=== PATIENT | female | born 1990 | race Two or more races ===

== ENCOUNTER 2021-08-01 15:46 | Emergency (ER) | payer OTHER, SELFPAY ==
[2021-08-01 15:58] VITALS: BP 139/100; PULSE 102; RESP 18; TEMP 36.9; O2SAT 98; BMI 23.8
[2021-08-01 16:07] LABS: MANUAL DIFF FLAG NO
[2021-08-01 16:12] LABS: Basophils Percent Auto 0.5 % (0-2); Eosinophils Absolute Auto 0.1 X10*3/uL (0.0-0.4); Eosinophils Percent Auto 0.8 % (0-4); Hematocrit 34.1 % (37.0-47.0); Hemoglobin 10.9 g/dl (12.0-16.0); Imm Gran Abs Auto 0.02 X10*3/uL (0.00-0.03); Imm Gran Pct Auto 0.3 % (0.0-0.4); Lymphocytes Absolute Auto 1.8 X10*3/uL (1.2-4.9); Lymphocytes Percent Auto 24.5 % (20-40); Mean Corpuscular Hemoglobin 26.7 pg (27.0-33.0); Mean Corpuscular Volume 83.4 fL (80.0-98.0); Mean Platelet Volume 9.7 fL (9.4-12.3); Monocytes Absolute Auto 0.6 X10*3/uL (0.1-1.2); Monocytes Percent Auto 7.5 % (2-11); Neutrophils Absolute Auto 4.9 x10*3/uL (2.0-8.3); Neutrophils Percent Auto 66.4 % (45-73); Platelet Count 379 X10*3/uL (160-400); Red Blood Count 4.09 X10*6/uL (4.20-5.50); Red Cell Distribution Width 16.2 % (11.0-16.0); White Blood Count 7.3 X10*3/uL (4.8-10.8)
[2021-08-01 16:22] LABS: Anion Gap 11 (12-20); Blood Urea Nitrogen 12 mg/dL (9-16); Carbon Dioxide 22 mmol/L (22-29); Chloride 108 mmol/L (96-108); Creatinine Clr Calc Pharmacy 96.1; Estimated Glomerular Filt Rate > 60; Glucose Random 101 mg/dL (60-115); Potassium 3.9 mmol/L (3.3-5.1); Sodium 137 mmol/L (135-145)
[2021-08-01 17:36] LABS: Appearance Urine TURBID; Glucose Urine UA NEG (NEG); Specific Gravity - Urine 1.025 (1.005-1.025); UACC Culture Trigger YES; Urine Blood 3+ (NEG)
[2021-08-01 17:41] LABS: Color Urine RED; Leukocyte Esterase Urine TRACE (NEG); Nitrite Urine POS (NEG)
[2021-08-01 17:42] LABS: Urine Ketones 5 MG/DL (NEG); Urine Protein 2+ MG/DL (NEG-TRACE)
[2021-08-01 17:51] LABS: RBC Urine TNTC /HPF (0); Squamous Epithelial Cell Urine 1+ /LPF; WBC Urine 0 /HPF (0-4)
== END 2021-08-01 22:17 | disposition left against medical advice (07) ==
PROVIDERS: Emergency Provider Emergency Medicine
DX: N93.9 Abnormal uterine and vaginal bleeding, unspecified (principal)
CPT/HCPCS: 36415; 80048; 81001; 85025; 87086; 87147; 99283

== ENCOUNTER 2021-08-02 08:13 | Emergency (ER) | payer OTHER, SELFPAY ==
[2021-08-02 08:23] VITALS: BP 143/91; PULSE 101; RESP 18; TEMP 36.2; O2SAT 99; BMI 23.9
[2021-08-02 08:42] LABS: MANUAL DIFF FLAG NO
[2021-08-02 08:47] LABS: Basophils Percent Auto 0.6 % (0-2); Eosinophils Absolute Auto 0.1 X10*3/uL (0.0-0.4); Eosinophils Percent Auto 1.7 % (0-4); Hematocrit 35.9 % (37.0-47.0); Hemoglobin 11.2 g/dl (12.0-16.0); Imm Gran Abs Auto 0.01 X10*3/uL (0.00-0.03); Imm Gran Pct Auto 0.2 % (0.0-0.4); Lymphocytes Absolute Auto 1.4 X10*3/uL (1.2-4.9); Lymphocytes Percent Auto 21.5 % (20-40); Mean Corpuscular HGB Conc 31.2 g/dl (31.0-35.0); Mean Corpuscular Hemoglobin 26.4 pg (27.0-33.0); Mean Corpuscular Volume 84.7 fL (80.0-98.0); Monocytes Absolute Auto 0.6 X10*3/uL (0.1-1.2); Monocytes Percent Auto 8.8 % (2-11); Neutrophils Absolute Auto 4.4 x10*3/uL (2.0-8.3); Neutrophils Percent Auto 67.2 % (45-73); Platelet Count 443 X10*3/uL (160-400); Red Blood Count 4.24 X10*6/uL (4.20-5.50); Red Cell Distribution Width 16.5 % (11.0-16.0); UPreg QC Valid YES; White Blood Count 6.6 X10*3/uL (4.8-10.8)
[2021-08-02 08:48] LABS: Urine Pregnancy NEGATIVE (NEGATIVE)
[2021-08-02 08:54] LABS: Appearance Urine CLOUDY; Glucose Urine UA NEG (NEG); Leukocyte Esterase Urine TRACE (NEG); Nitrite Urine NEG (NEG); Specific Gravity - Urine 1.025 (1.005-1.025); UACC Culture Trigger NO; Urine Blood 3+ (NEG); Urine Ketones NEG (NEG); Urine Protein 2+ MG/DL (NEG-TRACE)
[2021-08-02 08:55] LABS: Color Urine RED
[2021-08-02 08:58] LABS: RBC Urine TNTC /HPF (0); Squamous Epithelial Cell Urine TRACE /LPF; WBC Urine 0-2 /HPF (0-4)
[2021-08-02 09:09] LABS: Alanine Aminotransferase 11 U/L (0-31); Albumin Level 4.1 g/dL (3.5-5.0); Alkaline Phosphatase 52 U/L (39-117); Anion Gap 12 (12-20); Aspartate Amino Transferase 13 U/L (5-31); Bilirubin Total 0.2 mg/dL (0.0-1.0); Blood Urea Nitrogen 13 mg/dL (9-16); Carbon Dioxide 22 mmol/L (22-29); Chloride 107 mmol/L (96-108); Creatinine Clr Calc Pharmacy 92.3; Estimated Glomerular Filt Rate > 60; Glucose Random 95 mg/dL (60-115); Sodium 137 mmol/L (135-145); Total Protein 7.3 g/dL (6.5-8.0)
== END 2021-08-02 14:36 | disposition left against medical advice (07) ==
PROVIDERS: Emergency Provider Emergency Medicine
DX: N92.0 Excessive and frequent menstruation with regular cycle (principal)
CPT/HCPCS: 36415; 80053; 81001; 81025; 85025; 99283

== ENCOUNTER 2021-08-03 08:07 | Outpatient (REF) | payer OTHER, SELFPAY ==
[2021-08-03 13:20] LABS: CT PCR NOT DETECTED (Not Detect.); NG PCR NOT DETECTED (Not Detect.)
[2021-08-04 11:14] LABS: BV Int Neg Control Negative (Negative); BV Int Pos Control Positive (Positive)
[2021-08-09 11:51] LABS: HPV mRNA E6/E7 rflx Not Detected (Not Detected)
== END 2021-08-03 08:08 | disposition home or self-care (01) ==
LOC: HO.LAB 08:07
PROVIDERS: Visit Provider Advanced Practice Midwife
DX: Z01.411 Encounter for gynecological examination (general) (routine) with abnormal findings (principal); Z11.51 Encounter for screening for human papillomavirus (HPV); N92.0 Excessive and frequent menstruation with regular cycle; N20.2 Calculus of kidney with calculus of ureter; R68.82 Decreased libido; Z72.0 Tobacco use
CPT/HCPCS: 87480; 87491; 87510; 87591; 87624; 87660; 88142

== ENCOUNTER 2021-09-06 14:36 | Outpatient (REF) | payer OTHER, SELFPAY ==
--- NOTE | ~2021-09-06 | US_ITS ---
EXAMINATION: US PELVIS CLINICAL INFORMATION: Excessive and frequent menstruation. Status post polypectomy in 2019 COMPARISON: June 17, 2019 TECHNIQUE: Ultrasound of the pelvis is performed using both transabdominal and transvaginal transducers along with Doppler. Transvaginal imaging is performed due to inadequate visualization transabdominally. FINDINGS: Uterus: The uterus is anteverted and measures 8.6 x 4.6 x 5.1 cm. The double wall endometrial thickness is 1.7 mm. No endometrial mass identified. The uterus is smooth in contour and has normal myometrial echogenicity. No visible fibroid. Adnexa: Both ovaries are visualized. There is normal color flow to the adnexa. There is no ovarian torsion. There is no pelvic ascites or fluid collection. Right ovary measures 2.7 x 2.4 x 2.2 cm. There is a simple cyst measuring 1.9 x 1.7 x 1.7 cm in size. Left ovary measures 2.1 x 1.7 x 1.9 cm. US/US pelvic and transvaginal IMPRESSION: Thickened endometrium without definitive polyp identified. 1.9 cm right ovarian cyst.
== END 2021-09-06 14:37 | disposition home or self-care (01) ==
LOC: HO.US 14:36
PROVIDERS: Visit Provider Advanced Practice Midwife
DX: N92.0 Excessive and frequent menstruation with regular cycle (principal)
CPT/HCPCS: 76830; 76856

== ENCOUNTER 2021-09-15 14:02 | Outpatient (REF) | payer OTHER, SELFPAY | END 2021-09-15 14:03 | disposition home or self-care (01) | LOC: HO.LAB 14:02 | PROVIDERS: Visit Provider Obstetrics & Gynecology | DX: N88.9 Noninflammatory disorder of cervix uteri, unspecified (principal); N93.9 Abnormal uterine and vaginal bleeding, unspecified; N83.201 Unspecified ovarian cyst, right side; R93.89 Abnormal findings on diagnostic imaging of other specified body structures | CPT/HCPCS: 57500; 88305; 99212 ==

== ENCOUNTER → 2021-09-28 13:44 | Outpatient (BNVA) | payer OTHER, SELFPAY | PROVIDERS: Visit Provider Obstetrics & Gynecology | DX: N88.9 Noninflammatory disorder of cervix uteri, unspecified (principal) | CPT/HCPCS: 99212 ==

== ENCOUNTER 2021-09-30 10:11 | Day surgery (SDC) | payer OTHER, SELFPAY ==
[2021-09-30] VITALS (11 sets, daily range): BP systolic 101–141; BP diastolic 40–104; PULSE 60–89; RESP 16–22; TEMP 36.6–36.8; O2SAT 100; BMI 23.6
--- NOTE | 2021-09-30 10:47 | MHC.SHP ---
Pre-Procedural Eval Section A Date of Service: 09/30/21 The patient is an INPATIENT: No Changes since office visit: No Cold of Flu in the past 2 weeks, No New Medical Problems, No Changes in Medication and No Patient answered all questions The History & Physical has been completed within 30 days and I have reviewed it.: Yes Section B Chief Complaint: polyp Allergies: Allergies Allergy/AdvReac Type Severity Reaction Status Date / Time No Known Allergies Allergy Verified 09/28/21 14:02 Plan Diagnosis/Plan: Unchanged I have reviewed the history and physical and performed a pertinent physical examination on my patient. No changes have occurred unless specified.
[2021-09-30 10:50] LABS: UPreg QC Valid YES; Urine Pregnancy NEGATIVE (NEGATIVE)
--- NOTE | 2021-09-30 10:51 | P.CONAN_ITS ---
HPI - Anesthesia Eval Consult details Narrative: 30 yo female patient for D&C Hysteroscopy, possible myomectomy, possible polypectomy PMFSH Active Problems Active Problems: All Active Problems (Updated 09/28/21 @ 14:18 by Madan James MD) Cervical lesion (Acute) Abnormal uterine bleeding (Acute) Anemia Family History Family history of problems with anesthesia: No Surgical History Surgical History Hx of dilation and curettage History of Problems with Anesthesia: No Social History Social History Alcohol intake: current Alcohol intake frequency: a few times a month Patient Tobacco Use Status: Current everyday Tobacco user Tobacco use type: Cigarette Cigarettes Per Day: 7 Use of substances other than those prescribed or required for medical reasons: No Are you DNR?: No Advance Directives: No Advance Directives Information Provided: Yes Recently lost weight without trying: No Nutrition Risks: No Nutritional Risk Current occupational status: employed 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 [employer] Sexual orientation: Straight/Heterosexual Gender identity: Female Meds Allergies Allergy/AdvReac Type Severity Reaction Status Date / Time No Known Allergies Allergy Verified 09/28/21 14:02 Home Medications Medication Instructions Recorded Confirmed Last Taken Type No Known Home Meds 09/15/21 09/15/21 Unknown History Exam Exam Date and Time: September 30, 2021 1051 Height,Weight and Vital Signs: Height 5 ft 1 in Weight 56.699 kg Last Vital Signs Temp 98.2 F 09/30/21 10:41 Pulse 89 09/30/21 10:41 Resp 16 09/30/21 10:41 BP 128/89 09/30/21 10:41 Pulse Ox 100 09/30/21 10:41 O2 Del Method 09/30/21 10:41 Pertinent Lab Results Pertinent Lab Results: Laboratory Tests 09/30/21 10:28 Urine Test NEGATIVE Airway Mallampati Class: II TM Dist: >3cm Neck ROM: Full Loose/Missing/Broken Teeth: No (Per patient) Heart: RRR Lungs: CTAB Assessment and Plan Assessment Anesthesia Assessment: Anesthesia Plan Discussed and Chart Reviewed Final Anesthetic Review Family History of Problems with Anesthesia: No History of Problems with Anesthesia: No NPO: Yes ASA Class: II Final Preanesthetic Review: No Changes in Pt Med Stat, Meds/Allgs Chart Reviewed, Consent Obtained/Reviewed and Anes Risks/Benef Reviewed Patient Risk: Low Procedure Risk: Low Assessment/Block/Sedation in SS: Assess/Block/Sedation-SS Anesthetic Plan Anesthetic Plan: GA Disposition: Standard PACU
[2021-09-30] MEDS: Lactated Ringers 1,000 ML 100 ML IVCONT (10:59)
--- NOTE | 2021-09-30 12:28 | PM.OP ---
Brief Operative Note Date of Service: 09/30/21 Pre-op diagnosis: Abnormal uterine bleeding, endo cervical polyp Post-op diagnosis: same (Abnormal uterine bleeding, endometrial polyp) Procedure: Hysteroscopy D&C, Polypectomy Surgeon: Madan James MD Anesthesia: GLMA Was an Bailing Machine Operator used for this Procedure?: No Estimated blood loss (mL): 0 Pathology: other (Endometrial Scrapping. Endometrial Polyp) Condition: stable Disposition: PACU
--- NOTE | 2021-09-30 12:29 | P.OP_ITS ---
Operative Note Operative Note Date of Service: 09/30/21 Narrative: Preop Diagnosis: Abnormal uterine bleeding, endocervical polyp Operation: Diagnostic Hysteroscopy, Dilataion & Curettage and polypectomy Post Op Diagnosis: Endometrial Polyp QBL: Minimal Anesthesia: GLMA Surgeon: Madan James MD Supervisor Treating And Pumping: None Complication: None Pathology: Endometrial Scrapings, Endometrial polyp Procedure: The patient was put in the dorsal lithotomy position, scrubbed, and draped in the usual manner. A sterile speculum was inserted in the patient's vagina. The anterior lip of the cervix was grasped with a single tooth tenaculum. The cervix was dilated up to 5 mm, then the scope was inserted in the patient's uterus. Inspection revealed endometrial polyp. The Myosure Reach device was used; it was introduced through the operative channel and polypectomy done with no complications. At the end of the procedure, all instruments were taken out of the patient uterine and vaginal cavity. Endometrial scrapings was carried on with moderate amount of tissues retrieved. The single tooth tenaculum was removed and homeostasis was assured using pressure,. The patient tolerated the procedure well and was transferred to the PACU in a stable condition.
[2021-09-30] MEDS: ondansetron HCL 4 MG/2 ML VIAL IVPUSH (12:44)
[2021-09-30] MEDS: oxyCODONE HCl Immed Release 5 MG TABLET PO (12:46)
[2021-09-30] MEDS: Acetaminophen 325 MG TABLET 650 MG PO (12:46)
[2021-09-30] MEDS: fentaNYL citrate/PF 100 MCG/2 ML VIAL 25 MCG IVPUSH ×2 (12:47→13:06)
[2021-09-30] MEDS: Ketorolac Tromethamine 30 MG/ML VIAL IVPUSH (12:53)
== END 2021-09-30 14:45 | disposition home or self-care (01) ==
PROVIDERS: Visit Provider Obstetrics & Gynecology
PROC: 0UDB8ZZ Extraction of Endometrium, Via Natural or Artificial Opening Endoscopic (ICD-10-PCS; CPT 58558; principal; 2021-09-30 12:35)
DX: N84.0 Polyp of corpus uteri (principal); N93.9 Abnormal uterine and vaginal bleeding, unspecified; F17.210 Nicotine dependence, cigarettes, uncomplicated
CPT/HCPCS: 58558; 81025; 88305; J1100; J1885; J2250; J2405; J3010

== ENCOUNTER → 2021-10-13 12:41 | Outpatient (BNVA) | payer OTHER, SELFPAY | PROVIDERS: Visit Provider Obstetrics & Gynecology | DX: N88.9 Noninflammatory disorder of cervix uteri, unspecified (principal) | CPT/HCPCS: 99212 ==

== ENCOUNTER 2023-10-23 10:38 | Outpatient (REF) | payer OTHER, SELFPAY ==
--- NOTE | ~2023-10-23 | US_ITS ---
EXAMINATION: US PELVIS CLINICAL INFORMATION: Heavy bleeding with clots COMPARISON: 09/06/2021 TECHNIQUE: Ultrasound of the pelvis is performed using both transabdominal and transvaginal transducers along with Doppler. Transvaginal imaging is performed due to inadequate visualization transabdominally. FINDINGS: Uterus: The uterus is measures 7.0 x 3.7 x 4.5 cm. The endometrium is thickened and heterogeneous measuring 1 cm. Within the endometrium there is a stalk-like vessel but no definite polyp or mass is identified Left ovary measures 2.5 x 2.3 x 2.8 cm for a volume of 8.4 mL. Previous measurement was 2.1 x 1.7 x 1.9 cm for a volume of 3.5 mm. Right ovary measures 1.7 x 1.8 x 2.3 cm for a volume of 3.7 mL. Previous measurement was 2.7 x 2.4 x 2.2 cm for a volume of 7.5 cm. No free fluid. US/US pelvic and transvaginal IMPRESSION: Redemonstration thickened heterogeneous endometrium with concern for stalk like vessel but no definite identifiable mass.
[2023-10-23 10:57] LABS: Hematocrit 27.4 % (37.0-47.0); Mean Corpuscular HGB Conc 29.9 g/dl (31.0-35.0); Mean Corpuscular Hemoglobin 22.8 pg (27.0-33.0); Mean Corpuscular Volume 76.1 fL (80.0-98.0); Mean Platelet Volume 9.7 fL (9.4-12.3); Platelet Count 283 X10*3/uL (160-400); Red Cell Distribution Width 16.2 % (11.0-16.0); White Blood Count 5.8 X10*3/uL (4.8-10.8)
[2023-10-23 10:59] LABS: Hemoglobin 8.2 g/dl (12.0-16.0)
[2023-10-23 13:59] LABS: HCG Quantitative < 2 mIU/mL; TSH reflex Free T4 0.69 uIU/mL (0.32-4.0)
[2023-10-23 17:35] LABS: CT PCR NOT DETECTED (Not Detect.); NG PCR NOT DETECTED (Not Detect.)
[2023-10-24 07:15] LABS: Prolactin 6.5 ng/mL
== END 2023-10-23 10:39 | disposition home or self-care (01) ==
LOC: HO.LAB 10:38
PROVIDERS: Visit Provider Obstetrics & Gynecology
DX: N88.9 Noninflammatory disorder of cervix uteri, unspecified (principal); N93.9 Abnormal uterine and vaginal bleeding, unspecified
CPT/HCPCS: 36415; 76830; 76856; 81025; 84146; 84443; 84702; 85027; 87491; 87591; 99212

== ENCOUNTER 2023-10-23 10:51 | Outpatient (AMB) | payer OTHER, SELFPAY ==
--- NOTE | 2023-10-23 10:52 | MHC.OFFVIS ---
Vital Signs 10/23/23 10:58 Height 5 ft 1 in Weight 124 lb BMI 23.4 BP 118/64 Intake Visit Reasons: vaginal bleeding Manufacturing Advisor Required: No Information Interpreted: non-clinical & clinical Lead Neurodiagnostic Technologist: Lead Neurodiagnostic Technologist Present (Loan Rangel TERRI) Accompanied by: Self / Same As Patient Allergies No Known Allergies Allergy (Verified 10/23/23 10:59) Is last menstrual period known: Yes Last menstrual period: 10/04/23 Post menopausal: No Patient : No Do you need a note to return to daycare/school/sports/work: Yes (for surgery on sunday) HPI Comments Details: Presenting with 2 week history of heavy vaginal bleeding associated with pelvic cramping and passage of blood clots, feeling weak tiredness Last co testing was in 07/31 was negative. 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 [employer] Sexual orientation: Straight/Heterosexual Gender identity: Female Female Reproductive History Menstrual Age of Menarche: 8 Date of last menstrual period: 10/04/23 Total pregnancies: 2 Full term: 2 Review of Systems Const All systems reviewed & are unremarkable except as noted in HPI and below Card Reports as per HPI and Reports no additional complaints Resp Reports as per HPI and Reports no additional complaints GI Reports as per HPI and Reports no additional complaints Reports as per HPI Physical Exam Vital Signs: Last Vital Signs BP 118/64 10/23/23 10:58 BMI result Body Mass Index 23.4 Const General: cooperative, healthy appearing and comfortable Resp Effort & Inspection: normal respiratory effort Auscultation: clear to auscultation bilaterally Percussion: percussion normal Cardio Palpation: normal PMI Rate: regular rate Rhythm: regular rhythm Heart sounds: no murmurs and no rubs Peripheral pulses: Peripheral pulses 2+ throughout GI Inspection: Yes normal to inspection Palpation (GI): Soft to palpation, nontender, no guarding, not rigid and No hepatosplenomegaly present Percussion: Yes normal to percussion Auscultation: normal bowel sounds Rectal Exam - Female: deferred General: Yes no CVA tenderness External Female Exam: normal external appearance and normal appearance of the urethra Speculum Exam - Vagina: normal appearance of the vagina, normal palpation, no lesions and no masses Speculum Exam - Cervix: normal appearance of the cervix, normal palpation, no lesions, no masses, nontender and Other cervical findings present (2 cm endocervical polyp bleeding) Bimanual exam- vagina & uterus: normal bimanual exam, normal palpation, uterine size normal, normal palpation, uterine shape normal, No Cervical tenderness present and non-tender Bimanual Exam- Adnexa, other: normal adnexae Back/Spine/Pelvis Back: no CVA tenderness Results AMB Test Urine AMB Test Urine Negative Last Edit by Loan Rangel CMA on 10/23/23 11:00 Assessment & Plan Assessment & Plan (1) Abnormal uterine bleeding: Comment: With anemia Code(s): N93.9 - Abnormal uterine and vaginal bleeding, unspecified Category: Medical Plan: Since the patient is symptomatic will send the patient to emergency for 1 unit of packed RBCs to be transfuse today. Iron sulfate 325 mg p.o. t.i.d. GC and chlamydia taken , TSH, prolactin, HCG, and pelvic ultrasound ordered. Discussed with the patient the different causes of abnormal bleeding including thyroid disorders, uterine and ovarian pathology, endometrial hyperplasia, carcinoma and other potential causes. Discussed with the patient the work up including , TSH, prolactin, pelvic Ultrasound, hysteroscopy D&C polypectomy possible myomectomy. Discussed with the patient the results of the work up done and options of treatment including but not limited to BCP's, cyclic Progesterone, Mirena IUD, endometrial ablation and hysterectomy. All pros, cons, risks and benefits of each option were discussed with the patient and the patient decided to go ahead with continuous Prometrium, so a more detailed discussion re: Progesterone treatment including mechanism of action, benefits (regular menses, endometrial protection form unopposed estrogen and reduction in the risk of endometrial hyperplasia and/or cancer ...), risks (Thrombosis, mood changes, weight gain, breast soreness, ? increased breast ca, others). Instructions were given to use a back- up method for contraception since this is not a method control, take the medication 1 tablet daily 200 mg Prometrium daily and to schedule a 2 week follow-up appointment; patient verbalized understanding and agreed with the plan. All questions answered and the patient verbalized understanding. Instructed the patient to schedule an appointment for an endometrial biopsy in 2 weeks. (2) Cervical lesion: Comment: Endocervical polyp Code(s): N88.9 - Noninflammatory disorder of cervix uteri, unspecified Category: Medical Plan: Discussed with the patient the finding on pelvic exam recommended hysteroscopy D&C /polypectomy. Discussed with the patient the procedure , all benefits and risks including but not limited to inability to complete the procedure , insufficient endometrial tissue for a complete evaluation of the endometrial cavity , bleeding, infection, possible need for blood transfusion with all its risk ( HIV,syphilis, Hepatitis, anaphylaxis shock, others..), injury to bladder, rectum, possible need for laparoscopy/laparotomy or hysterectomy. The patient verbalized understanding and signed the consent. Instructions given the patient to stay NPO after midnight the day prior to the procedure and to take only the specific medication (s) discussed the morning of the surgical procedure and to schedule a 2 week postoperative appointment Orders: Orders TSH reflex Free T4 Today N93.9 - Abnormal uterine and vaginal bleeding, unspecified Prolactin Today N93.9 - Abnormal uterine and vaginal bleeding, unspecified Complete Blood Count no Diff Today N93.9 - Abnormal uterine and vaginal bleeding, unspecified US pelvic and transvaginal Today N88.9 - Noninflammatory disorder of cervix uteri, unspecified CT NG by PCR Today N93.9 - Abnormal uterine and vaginal bleeding, unspecified HCG Quantitative Today N93.9 - Abnormal uterine and vaginal bleeding, unspecified AMB HCG Urine Test Today Z32.02 - Encounter for test, result negative Medications: New progesterone micronized (Prometrium) T 200 mg PO BEDTIME 90 days 90 caps 0RF Coding Level of Care Code Est Pt Level 3 (45640) Diagnoses Abnormal uterine bleeding N93.9 Cervical lesion N88.9
[2023-10-23 10:58] VITALS: BP 118/64; BMI 23.4
== END 2023-10-23 13:38 | disposition home or self-care (01) ==
LOC: HO.HWS 10:51
PROVIDERS: Visit Provider Obstetrics & Gynecology
DX: N93.9 Abnormal uterine and vaginal bleeding, unspecified (principal); N88.9 Noninflammatory disorder of cervix uteri, unspecified; Z32.02 Encounter for pregnancy test, result negative
CPT/HCPCS: 99213

== ENCOUNTER 2023-10-23 11:21 | Outpatient (REF) | payer OTHER, SELFPAY | END 2023-10-23 11:22 | disposition home or self-care (01) | LOC: HO.LNP 11:21 | PROVIDERS: Visit Provider Obstetrics & Gynecology | DX: Z13.89 Encounter for screening for other disorder (principal) ==

== ENCOUNTER 2023-10-23 13:40 | Emergency (ER) | payer OTHER, SELFPAY ==
[2023-10-23] VITALS (8 sets, daily range): BP systolic 126–147; BP diastolic 75–100; PULSE 80–95; RESP 16–19; TEMP 36.6–37.1; O2SAT 98–100; BMI 25.5
--- NOTE | 2023-10-23 13:43 | ED.RECABL ---
HPI - Recheck/Abnormal Lab/Rx General Chief Complaint: Vaginal Bleeding Stated Complaint: blood transfusion, sent down by Erika Time Seen by Provider: 10/23/23 13:52 Source: patient and old records reviewed Mode of arrival: ambulatory Limitations: no limitations History of Present Illness ED Provider: Nilda Will PA-C HPI narrative: 32-year-old female with a history of a cervical lesion that has been bleeding since October 13 presents to the ER from Dr. James's office for a blood transfusion. She was found to have a hemoglobin of 8.2 and hematocrit of 27.4 today along with symptoms of weakness, dizziness, shakiness, chills, shortness of breath. She states she has been using 4-5 tampons or pads per day. She was at doctor's [facility] office today where she had an ultrasound performed. There is plans for outpatient surgery tomorrow to remove the cervical lesion. She reports going through this issue 2 years ago as well. She has never required a blood transfusion in the past. She denies any melena or bright red blood per rectum. No chest pain. MD complaint: abnormal lab Initial visit for: other (Vaginal bleeding) Description of abnormal result: Abnormal H&H Associated symptoms: shortness of breath Related Data Previous Rx's ?Medication ?Instructions ?Recorded progesterone micronized 200 mg 200 mg PO BEDTIME 90 days #90 caps 10/23/23 capsule (Prometrium) Allergies Allergy/AdvReac Type Severity Reaction Status Date / Time No Known Allergies Allergy Verified 10/23/23 13:50 Review of Systems Review of Systems: Yes all other systems are reviewed and are negative PMFSH Past Medical History Surgical History Hx of dilation and curettage Social History Social History Alcohol intake: current Alcohol intake frequency: a few times a week Patient Tobacco Use Status: Current everyday Tobacco user Tobacco use type: Cigarette Cigarettes Per Day: 7 Smoked in Last 30 Days: Yes Use of substances other than those prescribed or required for medical reasons: Yes Substance Use Type: Marijuana Substance Use Frequency: Chronic Longstanding Advance Directives: No Advance Directives Information Provided: Yes Do you have a plan to hurt others: No Plan Current occupational status: employed 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 Oriented X3. No acute distress. Head: normocephalic, atraumatic. Eyes: Pupils equal, round and reactive to light. No conjunctival pallor ENT: Pharynx normal. No tonsillar swelling or exudate. Neck: Normal inspection. Neck supple. CVS: Normal heart rate and rhythm. Pulses normal. Respiratory: No respiratory distress. Breath sounds normal. Abdomen: Soft and nontender. +BS x4. Pelvic deferred Skin: Skin warm and dry. Normal skin color. Normal skin turgor. No rashes. Extremities: No lower extremity edema. No joint swelling. Neuro/psych: Oriented X 3. No motor deficit. No sensory deficit. CN II-XII intact. Normal speech and cognition. Steady gait Course Course Course Narrative: This is a Rapid Medical Examination (RME) performed by Nilda Will PA-C in triage. Full HPI, ROS, assessment and treatment plan per primary provider in the Main ED. 32 yo female presents to the ER from Dr. James's office for a blood transfusion. She has a cervical polyp that is bleeding since 10/13, going through 4-[address] James planning on surgery tomorrow. She was found to have an H/H of 8.2/27.4 today from a baseline of 11.2/35./9 (in 2021). Feels shaky, dizzy, SOB, palpitations. Plan: repeat H/H, labs, transfuse 1 unit PRBC per Erika recs, consent signed Reevaluation(s) Reevaluation #1: Blood is hung. Patient is tolerating well. Plan for to our transfusion and post transfusion H&H per Dr. James's recommendations. Time: 16:05 Medications Administered Discontinued Medications Generic Name Dose Route Start Last Admin Trade Name Freq PRN Reason Stop Dose Admin Sodium Chloride 100 mls @ 100 mls/hr 10/23/23 13:43 10/23/23 18:26 Ns IV 10/23/23 14:42 Infused ONCE ONE Infusion Medical Decision Making Medical Decision Making [facility] Narrative: 32-year-old female presents the ER for evaluation of symptomatic anemia. She has a cervical lesion that has been bleeding for the last couple of weeks. She has acute blood loss anemia on lab work today with Dr. James. She is due to go to the OR for removal of the cervical polyp per her report. She reports weakness, dizziness, shakiness. No history of requiring a blood transfusion in the past. She is hemodynamically stable on arrival. No active hemorrhaging. She is coming from robel James's office. She had an ultrasound done today. Patient consented and typed and screened for blood transfusion. She was given 1 unit of PRBCs. She was monitored throughout the transfusion and had no adverse reactions. She remained hemodynamically stable. She is due to go to the OR for procedure tomorrow so repeat H&H was done. This shows improvement in her hemoglobin to 9.2. At this time she is stable for discharge home. Recommending starting oral iron tablets as her iron panel was low. Comfortable discharge home. Differential Diagnosis Differential Diagnoses: The differential diagnosis associated with the presentation includes acute blood loss anemia, iron deficiency anemia, symptomatic anemia, dysfunctional uterine bleeding Admission/Observation Consideration of admission/observation: Escalation of care including admission/observation considered Consult Healthcare Provider Management of the patient was discussed with: Decision Analyst Dr. James Lab Data [facility] Lab Attestation statement: I reviewed the patient's lab results. Acute microcytic anemia compared to prior 10/23/23 20:03 10/23/23 13:59 Labs: Lab Results 10/23/23 10/23/23 Range/Units 13:59 20:03 WBC 7.4 (4.8-10.8) X10*3/uL RBC 3.66 L (4.20-5.50) X10*6/uL Hgb 8.4 L 9.2 L (12.0-16.0) g/dl Hct 27.7 L 29.3 L (37.0-47.0) % MCV 75.7 L (80.0-98.0) fL MCH 23.0 L (27.0-33.0) pg MCHC 30.3 L (31.0-35.0) g/dl RDW 16.1 H (11.0-16.0) % Plt Count 285 (160-400) X10*3/uL MPV 9.3 L (9.4-12.3) fL Immature Gran % (Auto) 0.1 (0.0-0.4) % Neut % (Auto) 66.1 (45-73) % Lymph % (Auto) 23.1 (20-40) % [place] % (Auto) 9.3 (2-11) % Eos % (Auto) 0.9 (0-4) % Baso % (Auto) 0.5 (0-2) % Lymph # (Auto) 1.7 (1.2-4.9) X10*3/uL [place] # (Auto) 0.7 (0.1-1.2) X10*3/uL Eos # (Auto) 0.1 (0.0-0.4) X10*3/uL Baso # (Auto) 0.0 (0.0-0.2) X10*3/uL Abs Immat Gran (auto) 0.01 (0.00-0.03) X10*3/uL Absolute Neuts (auto) 4.9 (2.0-8.3) x10*3/uL Absolute Nucleated RBC 0.000 (0.0-0.012) X10*3/uL Nucleated RBC % (auto) 0.0 (0.0-0.2) /100WBC PT 11.9 (11.1-13.3) SEC INR 1.0 (0.9-1.1) APTT 23.4 L (26.0-36.8) SEC Sodium 134 L (135-145) mmol/L Potassium 3.9 (3.3-5.1) mmol/L Chloride 104 (96-108) mmol/L Carbon Dioxide 21 L (22-29) mmol/L Anion Gap 13 (12-20) BUN 11 (9-16) mg/dL Creatinine 0.69 (0.5-1.4) mg/dL Estim Creat Clear Calc 97.3 Estimated GFR > 60 Random Glucose 94 (60-115) mg/dL Calcium 9.2 (8.4-10.2) mg/dL Magnesium 1.8 (1.6-2.6) mg/dL Iron 15 L (30-160) mcg/dL TIBC 484 H (228-428) mcg/dL % Saturation 3 L (15-50) % Unsat Iron Binding 469 ug/dL Total Bilirubin 0.4 (0.0-1.0) mg/dL Direct Bilirubin 0.1 (0.0-0.5) mg/dL AST 11 (5-31) U/L ALT 10 (0-31) U/L Alkaline Phosphatase 59 (39-117) U/L Total Protein 7.6 (6.5-8.0) g/dL Albumin 4.3 (3.5-5.0) g/dL Blood Type A Positive Antibody Screen NEGATIVE Crossmatch See Detail External Record Review External record reviewed: Office record, Outpatient record, Prior outpatient labs, Prior outpatient radiology and Primary care record Prescription Management I considered prescription management with: Pain Medication Critical Care Time Critical Care Time Critical Care Time: Yes Total Critical Care Time: 44 Attestation: I have personally provided critical care time exclusive of time spent on separately billable procedures. Time includes review of lab data, radiology results, discussion with consultants, and monitoring for potential decompensation. Intervention performed as documented. Discharge Plan Discharge Clinical Impression: Abnormal uterine bleeding, Acute blood loss anemia Patient Disposition: Home, Self-Care Instructions: Iron Deficiency Anemia (ED), Acute Posthemorrhagic Anemia (DC) Additional Instructions: you were given 1 unit of blood today in the ER with improvement in your blood counts your iron stores are low, recommend starting over the counter iron tablets follow up with Dr. James tomorrow as scheduled If you develop new or worsening symptoms call 911 or come back to the ER for further evaluation. Prescriptions: No Action progesterone micronized [Prometrium] 200 mg capsule 200 mg PO BEDTIME 90 Days Qty: 90 0RF Rx Instructions: T Referrals: Physician,None [Primary Care Provider] - 1 Week Print Language: Nigerian
[2023-10-23 14:04] LABS: MANUAL DIFF FLAG NO
[2023-10-23 14:06] LABS: Basophils Percent Auto 0.5 % (0-2); Eosinophils Absolute Auto 0.1 X10*3/uL (0.0-0.4); Eosinophils Percent Auto 0.9 % (0-4); Hematocrit 27.7 % (37.0-47.0); Hemoglobin 8.4 g/dl (12.0-16.0); Imm Gran Abs Auto 0.01 X10*3/uL (0.00-0.03); Imm Gran Pct Auto 0.1 % (0.0-0.4); Lymphocytes Absolute Auto 1.7 X10*3/uL (1.2-4.9); Lymphocytes Percent Auto 23.1 % (20-40); Mean Corpuscular HGB Conc 30.3 g/dl (31.0-35.0); Mean Corpuscular Volume 75.7 fL (80.0-98.0); Mean Platelet Volume 9.3 fL (9.4-12.3); Monocytes Absolute Auto 0.7 X10*3/uL (0.1-1.2); Monocytes Percent Auto 9.3 % (2-11); Neutrophils Absolute Auto 4.9 x10*3/uL (2.0-8.3); Neutrophils Percent Auto 66.1 % (45-73); Platelet Count 285 X10*3/uL (160-400); Red Blood Count 3.66 X10*6/uL (4.20-5.50); Red Cell Distribution Width 16.1 % (11.0-16.0); White Blood Count 7.4 X10*3/uL (4.8-10.8)
[2023-10-23 14:13] LABS: Prothrombin Time 11.9 SEC (11.1-13.3)
[2023-10-23 14:17] LABS: Partial Thromboplastin Time 23.4 SEC (26.0-36.8)
[2023-10-23 14:34] LABS: Alanine Aminotransferase 10 U/L (0-31); Albumin Level 4.3 g/dL (3.5-5.0); Alkaline Phosphatase 59 U/L (39-117); Anion Gap 13 (12-20); Aspartate Amino Transferase 11 U/L (5-31); Bilirubin Direct 0.1 mg/dL (0.0-0.5); Bilirubin Total 0.4 mg/dL (0.0-1.0); Blood Urea Nitrogen 11 mg/dL (9-16); Calcium 9.2 mg/dL (8.4-10.2); Carbon Dioxide 21 mmol/L (22-29); Chloride 104 mmol/L (96-108); Creatinine Clr Calc Pharmacy 97.3; Estimated Glomerular Filt Rate > 60; Glucose Random 94 mg/dL (60-115); Iron 15 mcg/dL (30-160); Magnesium 1.8 mg/dL (1.6-2.6); Percent Iron Saturation 3 % (15-50); Potassium 3.9 mmol/L (3.3-5.1); Sodium 134 mmol/L (135-145); Total Iron Binding Capacity 484 mcg/dL (228-428); Total Protein 7.6 g/dL (6.5-8.0); Unsaturated Iron Binding 469 ug/dL
--- NOTE | 2023-10-23 16:13 | PC.NURSE ---
Per provider infuse blood over 2 hours, rate set at 150mls/hr, patient without s/s of reaction
--- NOTE | 2023-10-23 18:26 | PC.NURSE ---
Tolerated transfusion well, vss
--- NOTE | 2023-10-23 19:20 | PC.NURSE ---
This RN assumed pt care @ 1900. Pt ca&ox4, no signs of distress. Pt resting in bed comfortably watching tv Pt denies pain at this time. Plan of care ongoing.
[2023-10-23 20:08] LABS: Hematocrit 29.3 % (37.0-47.0); Hemoglobin 9.2 g/dl (12.0-16.0)
== END 2023-10-23 20:30 | disposition home or self-care (01) ==
PROVIDERS: Physician Assistant; Emergency Provider Emergency Medicine
DX: N93.8 Other specified abnormal uterine and vaginal bleeding (principal); D62 Acute posthemorrhagic anemia; R06.02 Shortness of breath; N88.9 Noninflammatory disorder of cervix uteri, unspecified; F17.210 Nicotine dependence, cigarettes, uncomplicated
CPT/HCPCS: 36415; 36430; 80048; 80076; 83540; 83735; 85014; 85018; 85025; 85610; 85730; 86850; 86900; 86901; 86923; 96360; 96361; 99284; 99285; P9016

== ENCOUNTER 2023-10-24 12:48 | Day surgery (SDC) | payer OTHER, SELFPAY ==
[2023-10-24 13:14] VITALS: BMI 25.5
[2023-10-24 13:27] LABS: UPreg QC Valid YES; Urine Pregnancy NEGATIVE (NEGATIVE)
--- NOTE | 2023-10-24 13:35 | HO.ANESPROP2 ---
HPI - Anesthesia Eval Consult details Narrative: hysteroscopy PMFSH Active Problems Active Problems: All Active Problems Cervical lesion (Acute) Abnormal uterine bleeding (Acute) Family History Family history of problems with anesthesia: No Surgical History Surgical History Hx of dilation and curettage History of Problems with Anesthesia: No Social History Social History Alcohol intake: current Alcohol intake frequency: 0-2 drinks per day Patient Tobacco Use Status: Current everyday Tobacco user Tobacco use type: Cigarette Cigarettes Per Day: 5 Use of substances other than those prescribed or required for medical reasons: Yes Substance Use Type: Marijuana Substance Use Type Other:: Smoking Substance Use Frequency: Daily Have you been hit, kicked, punched, or otherwise hurt by someone within the past year? 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 [employer] Sexual orientation: Straight/Heterosexual Gender identity: Female Meds Allergies Allergy/AdvReac Type Severity Reaction Status Date / Time No Known Allergies Allergy Verified 10/23/23 13:50 Exam Height,Weight and Vital Signs: Height 5 ft 1 in Weight 61.235 kg Pertinent Lab Results Pertinent Lab Results: Laboratory Tests 10/24/23 13:10 Urine Test NEGATIVE Airway Mallampati Class: II TM Dist: >3cm Neck ROM: Full Heart: rrr Lungs: cta Assessment and Plan Assessment Anesthesia Assessment: Anesthesia Plan Discussed Final Anesthetic Review Family History of Problems with Anesthesia: No History of Problems with Anesthesia: No NPO: Yes Final Preanesthetic Review: No Changes in Pt Med Stat, Meds/Allgs Chart Reviewed, Consent Obtained/Reviewed and Anes Risks/Benef Reviewed Procedure Risk: Low Anesthetic Plan Anesthetic Plan: GA
--- NOTE | 2023-10-24 13:53 | MHC.SHP ---
Pre-Procedural Eval Section A - 24 Hr Update-Section A only Date of Service: 10/24/23 The patient is an INPATIENT: No Changes since office visit: No Cold of Flu in the past 2 weeks, No New Medical Problems, No Changes in Medication and No Patient answered all questions The patient has been examined within 24 hours of the surgical procedure. The History & Physical has been completed within 30 days and I have reviewed it.: Yes Section B - Complete if H&P > 30 days Chief Complaint: Abnormal uterine and vaginal bleeding, Allergies: Allergies Allergy/AdvReac Type Severity Reaction Status Date / Time No Known Allergies Allergy Verified 10/23/23 13:50 Plan Diagnosis/Plan: Unchanged I have reviewed the history and physical and performed a pertinent physical examination on my patient. No changes have occurred unless specified. Time Spent With Patient Time: Total time managing care of this patient today ____ minutes.
--- NOTE | 2023-10-24 14:34 | P.BOP_ITS ---
Brief Operative Note Date of Service: 10/24/23 Pre-op diagnosis: Endocervical polyp, abnormal uterine bleeding Post-op diagnosis: same (Normal endometrial cavity Endocervical polyp) Procedure: Hysteroscopy D&C, Polypectomy Surgeon: Madan James MD Anesthesia: GLMA Was an Concrete Mixing Truck Driver used for this Procedure?: No Estimated blood loss (mL): 0 Pathology: other (Endometrial Scrapping. Polyp) Condition: stable Disposition: PACU
--- NOTE | 2023-10-24 14:35 | W.PM.OPN ---
Operative Note Operative Note Date of Service: 10/24/23 Narrative: Preop Diagnosis: Abnormal uterine bleeding, endocervical polyp Operation: Diagnostic Hysteroscopy, Dilataion & Curettage endocervical polyp removed Post Op Diagnosis: Normal endometrial and endocervical cavity, no evidence of pathology except for the stalk of endocervical polyp QBL: Minimal Anesthesia: GLMA Surgeon: Madan James MD Food And Beverage Attendant: None Complication: None Pathology: Endometrial Scrapings, endocervical polyp Procedure: The patient was put in the dorsal lithotomy position, scrubbed, and draped in the usual manner. A sterile speculum was inserted in the patient's vagina. Endocervical polyp was identified which was grasped with a ring forceps polyp outside the endocervix and using cautery the stalk was cauterized and cut. The anterior lip of the cervix was grasped with a single tooth tenaculum. The cervix was dilated up to 5 mm, then the scope was inserted in the patient's uterus. Inspection revealed normal endocervical & endometrial cavity with no evidence of pathology except for the sake of the endo cervical polyp. Using MyoSure endocervical polyp was excised. The scope was taken out of the uterine cavity , then sharp curetting was carried on with no complications. At the end of the procedure, all instruments were taken out of the patient uterine and vaginal cavity. The single tooth tenaculum was removed and homeostasis was assured using pressure. The patient tolerated the procedure well and was transferred to the PACU in a stable condition.
--- NOTE | 2023-10-24 14:46 | P.CONAN_ITS ---
[facility] Active Problems Active Problems: All Active Problems Cervical lesion (Acute) Abnormal uterine bleeding (Acute) Past Medical History Functional capacity: independent ambulation Patient : No Family History Family history of problems with anesthesia: No Surgical History Surgical History Hx of dilation and curettage History of Problems with Anesthesia: No Social History Social History Alcohol intake: current Alcohol intake frequency: 0-2 drinks per day Patient Tobacco Use Status: Current everyday Tobacco user Tobacco use type: Cigarette Cigarettes Per Day: 5 Use of substances other than those prescribed or required for medical reasons: Yes Substance Use Type: Marijuana Substance Use Type Other:: Smoking Substance Use Frequency: Daily Have you been hit, kicked, punched, or otherwise hurt by someone within the past year? 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 [employer] Sexual orientation: Straight/Heterosexual Gender identity: Female Meds Allergies Allergy/AdvReac Type Severity Reaction Status Date / Time No Known Allergies Allergy Verified 10/23/23 13:50 Active Medications: Current Medications Fentanyl (Fentanyl Citrate/Pf 100 Mcg/2 Ml Vial) 25 mcg IVPUSH Q5M PRN PRN Reason: Pain, Moderate(Pain Scale 4-6) Stop: 10/24/23 19:36 Ondansetron HCl (Ondansetron Hcl 4 Mg/2 Ml Vial) 4 mg IVPUSH ONCE PRN PRN Reason: Nausea and Vomiting Stop: 10/24/23 19:36 Exam Height,Weight and Vital Signs: Height 5 ft 1 in Weight 61.235 kg Pertinent Lab Results Pertinent Lab Results: Laboratory Tests 10/24/23 13:10 Urine Test NEGATIVE Airway Mallampati Class: II TM Dist: >3cm Neck ROM: Full Heart: RRR Lungs: CTA Assessment and Plan Assessment Anesthesia Assessment: Anesthesia Plan Discussed Final Anesthetic Review Family History of Problems with Anesthesia: No History of Problems with Anesthesia: No NPO: Yes ASA Class: II Final Preanesthetic Review: Meds/Allgs Chart Reviewed, Consent Obtained/Reviewed and Anes Risks/Benef Reviewed Patient Risk: Low Procedure Risk: Low Anesthetic Plan Anesthetic Plan: GA Disposition: Standard PACU
[2023-10-24 14:47] VITALS: BP 137/93; PULSE 78; RESP 16; TEMP 36.2; O2SAT 100
[2023-10-24 14:52] VITALS: BP 134/92; PULSE 70; RESP 17; O2SAT 100
[2023-10-24 14:57] VITALS: BP 130/73; PULSE 92; RESP 17; O2SAT 100
[2023-10-24 15:02] VITALS: BP 138/93; PULSE 78; RESP 17; O2SAT 100
[2023-10-24] MEDS: Acetaminophen 325 MG TABLET 650 MG PO (15:05)
[2023-10-24 15:18] VITALS: BP 131/94; PULSE 81; RESP 18; TEMP 36.4; O2SAT 100
--- NOTE | 2023-10-24 15:29 | HO.POSTANES ---
Post Anesthesia Evaluation Post Anesthesia Evaluation Date of Service: 10/24/23 Vital Signs: Vital Signs Temp Pulse Resp BP Pulse Ox O2 Del Method 10/24/23 15:18 97.6 F 81 18 131/94 H 100 Room Air 10/24/23 15:02 78 17 138/93 H 100 Room Air 10/24/23 14:57 92 17 130/73 100 Room Air 10/24/23 14:52 70 17 134/92 H 100 Room Air 10/24/23 14:47 97.2 F 78 16 137/93 H 100 Room Air Anesthesia: General LMA Mental Status: Awake Pain Control: Satisfactory Nausea/Vomiting: None Hydration: Adequate Anesthesia-Related Issues: No Anes. Related Issues
== END 2023-10-24 15:33 | disposition home or self-care (01) ==
PROVIDERS: Visit Provider Obstetrics & Gynecology
PROC: 0UDB8ZZ Extraction of Endometrium, Via Natural or Artificial Opening Endoscopic (ICD-10-PCS; CPT 58558; principal; 2023-10-24 14:30)
DX: N93.9 Abnormal uterine and vaginal bleeding, unspecified (principal); N84.1 Polyp of cervix uteri; F17.210 Nicotine dependence, cigarettes, uncomplicated
CPT/HCPCS: 58558; 81025; 88305; J1100; J2250; J2405; J2704; J3010

== ENCOUNTER → 2023-10-24 12:48 | Outpatient (BNV) | payer OTHER, SELFPAY | PROVIDERS: Visit Provider Obstetrics & Gynecology | DX: N93.9 Abnormal uterine and vaginal bleeding, unspecified (principal); N84.0 Polyp of corpus uteri | CPT/HCPCS: 58558 ==

== ENCOUNTER 2023-11-07 14:24 | Outpatient (AMB) | payer OTHER, SELFPAY ==
[2023-11-07 14:26] VITALS: BP 120/86; BMI 24.2
--- NOTE | 2023-11-07 14:26 | A.OFFVIS_ITS ---
Vital Signs 11/07/23 14:26 Height 5 ft Weight 124 lb BMI 24.2 BP 120/86 Intake Visit Reasons: post op Allergies No Known Allergies Allergy (Verified 10/23/23 13:50) HPI Comments Details: The patient is presenting post hysteroscopy D&C no complaints minimal vaginal bleeding no feverishness chills or abdominal pain. The pathology showed the following: A. Endocervical polyp, polypectomy: Benign endometrial polyp with surface erosion. B. Endometrium, curettage: Secretory endometrium; negative for atypia, hyperplasia or malignancy. The following workup was done.: H&H= 8.4/27.7, the patient received 1 unit blood transfusion repeat H&H was 9.2/29.3 TSH, hCG, prolactin, GC and chlamydia were negative. Co testing was done in 07/31was negative. Pelvic ultrasound showed the following: Uterus: The uterus is measures 7.0 x 3.7 x 4.5 cm. The endometrium is thickened and heterogeneous measuring 1 cm. Within the endometrium there is a stalk-like vessel but no definite polyp or mass is identified Left ovary measures 2.5 x 2.3 x 2.8 cm for a volume of 8.4 mL. Previous measurement was 2.1 x 1.7 x 1.9 cm for a volume of 3.5 mm. Right ovary measures 1.7 x 1.8 x 2.3 cm for a volume of 3.7 mL. Previous measurement was 2.7 x 2.4 x 2.2 cm for a volume of 7.5 cm. No free fluid. The patient is taking iron sulfate 325 mg p.o. t.i.d. and Prometrium 100 mg p.o. q.d., 7 tablets are left. 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 [employer] Sexual orientation: Straight/Heterosexual Gender identity: Female Female Reproductive History Menstrual Age of Menarche: 8 Review of Systems Const All systems reviewed & are unremarkable except as noted in HPI and below Reports as per HPI and Reports no additional complaints GI Reports no additional complaints Reports no additional complaints Physical Exam Vital Signs: Last Vital Signs BP 120/86 11/07/23 14:26 BMI result Body Mass Index 24.2 Assessment & Plan Assessment & Plan (1) Abnormal uterine bleeding: Comment: Endocervical polyp status post hysteroscopic polypectomy with anemia Code(s): N93.9 - Abnormal uterine and vaginal bleeding, unspecified Category: Medical Plan: Recommended to stay on iron sulfate 325 mg p.o. t.i.d. for 8 more weeks, repeat CBC (order placed) then and determine indication for to continue iron sulfate or not. Discussed with the patient the results of the work up done and options of treatment including Lysteda, control pills, Mirena IUD. All pros, cons, risks and benefits if each option was discussed with the patient and the patient decided to go ahead with Mirena IUD so a more detailed discussion about it was conducted including mechanism of action, risks (uterine perforation, infection, injury to bladder, bowel, displacement, and others) benefits (hypo menorrhea, amenorrhea, ...). GC/CT were taken and the patient was instructed to schedule Mirena IUD insertion anytime from now till day 1-5 of next cycle . All questions answered, the patient verbalized understanding Orders: Orders Complete Blood Count Auto Diff 2 Months N93.9 - Abnormal uterine and vaginal bleeding, unspecified Coding Level of Care Code Est Pt Level 3 (63941) Diagnoses Abnormal uterine bleeding N93.9
== END 2023-11-07 15:10 | disposition home or self-care (01) ==
LOC: HO.HWS 14:24
PROVIDERS: Visit Provider Obstetrics & Gynecology
DX: N93.9 Abnormal uterine and vaginal bleeding, unspecified (principal)
CPT/HCPCS: 99213

== ENCOUNTER → 2023-11-07 14:24 | Outpatient (BNVA) | payer OTHER, SELFPAY | PROVIDERS: Visit Provider Obstetrics & Gynecology | DX: N93.9 Abnormal uterine and vaginal bleeding, unspecified (principal) | CPT/HCPCS: 99212 ==

== ENCOUNTER 2024-01-15 14:00 | Outpatient (REF) | payer OTHER, SELFPAY ==
[2024-01-16 11:38] LABS: Bacterial Vaginosis PCR NEGATIVE (Negative); Candida Group PCR NOT DETECTED (Not Detect); Candida glab krusei PCR DETECTED (Not Detect); Trichomonas vaginalis PCR NOT DETECTED (Not Detect)
[2024-01-16 12:08] LABS: CT PCR NOT DETECTED (Not Detect.); NG PCR NOT DETECTED (Not Detect.)
== END 2024-01-15 14:01 | disposition home or self-care (01) ==
LOC: HO.LAB 14:00
PROVIDERS: Visit Provider Advanced Practice Midwife
DX: Z01.419 Encounter for gynecological examination (general) (routine) without abnormal findings (principal); N89.8 Other specified noninflammatory disorders of vagina; N93.9 Abnormal uterine and vaginal bleeding, unspecified; N88.9 Noninflammatory disorder of cervix uteri, unspecified; K64.4 Residual hemorrhoidal skin tags; Z80.0 Family history of malignant neoplasm of digestive organs
CPT/HCPCS: 0352U; 87491; 87591; 99395

== ENCOUNTER 2024-01-15 14:00 | Outpatient (AMB) | payer OTHER, SELFPAY ==
[2024-01-15 14:16] VITALS: BP 120/68; BMI 23.8
--- NOTE | 2024-01-15 14:16 | MHC.OFFVIS ---
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 She has seen Dr. James recent times for recurrence of endometrial polyps. Time they recur they cause very severe heavy bleeding and she transfuse she says the last time she says that the exams are also so traumatic because it scary when she so much and it always ends up in sudden so evaluations are in the emergency so she finds exams very painful and traumatizing. She does not have a primary care provider and she is wondering about getting referral to Gastroenterology because she has had problems with her hemorrhoids that also and they cause her lot of problems even if she is not constipated she would like to deal with those. She is not contraceptive thing at the moment she got would be okay she has a 12-year-old by Sosa and a 7 year delivered by Christy with that delivery was traumatic because there was a cord around his neck. 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 [employer] Sexual orientation: Straight/Heterosexual Gender identity: Female Female Reproductive History Menstrual Age of Menarche: 8 Duration of menses: 3-5 days Date of last menstrual period: 12/28/23 control method: none Total pregnancies: 2 Full term: 2 Date of last pap smear: 08/03/21 (negative,2017 WNL) Physical Exam Vital Signs: Last Vital Signs BP 120/68 01/15/24 14:16 BMI result Body Mass Index 23.8 Const General: healthy appearing, comfortable, no acute distress, well developed and alert Nutritional Appearance: average body habitus Orientation/consciousness: patient oriented x3 Limitations: no limitations HEENT Head: Yes normocephalic Neck Neck: Yes normal visual inspection Chest Chest palpation & inspection: normal inspection of the chest Breast/axilla inspection: normal inspection of the breasts and normal inspection of the axillae Breast/axilla palpation: normal palpation of the breasts and normal palpation of the axillae Resp Effort & Inspection: normal respiratory effort GI Inspection: Yes normal to inspection, No Abdominal wall edema and No distended Palpation (GI): Soft to palpation and nontender Other: Patient clenched her vagina closed when inserting speculum. She was not able to relax periods she said she has been traumatized by so many exam is always when she is bleeding heavily in the emergency so it is always scared. Since patient did not need Pap smear speculum exam deferred but testing for STIs done with Q-tip probes. Bimanual exam within normal limits patient able to relax a little bit for the. Large hemorrhoids noted externally. We will place gastrointestinal referral for her. General: Yes bladder normal to palpation External Female Exam: normal external appearance and normal appearance of the urethra Speculum Exam - Vagina: normal appearance of the vagina, normal palpation and normal vaginal discharge Speculum Exam - Cervix: normal appearance of the cervix, normal palpation and nontender Bimanual exam- vagina & uterus: normal bimanual exam, normal palpation, uterine size normal, bladder normal to palpation, consistency normal, normal palpation, uterine mobility normal, uterine shape normal, No Cervical tenderness present, non-tender and no cervical motion tenderness Bimanual Exam- Adnexa, other: normal adnexae, no masses, normal and No adnexal tenderness Female genitals images: 1. hemmorhoids Neuro General: patient oriented x3 Results Reviewed Results Reviewed: Reviewed previous Paps and biopsies of polyps, and also recent CBC s. she has a another CBC order pending to get now. Assessment & Plan Assessment & Plan (1) Abnormal uterine bleeding: Comment: Endocervical polyp status post hysteroscopic polypectomy with anemia Code(s): N93.9 - Abnormal uterine and vaginal bleeding, unspecified Category: Medical (2) Cervical lesion: Comment: Endocervical polyp Code(s): N88.9 - Noninflammatory disorder of cervix uteri, unspecified Category: Medical (3) Bleeding external hemorrhoids: Comment: Patient states she bleeds with most bowel movements. They are very problematic to her. Code(s): K64.4 - Residual hemorrhoidal skin tags Category: Medical (4) Family hx of colon cancer: Code(s): Z80.0 - Family history of malignant neoplasm of digestive organs Category: Medical Plan Reviewed her openness to that we do not have a birthing center here she tries to consider care at [facility] from start if she 34 as more testing involved. Can provide care no risk pregnancies but all testing is done at [facility]. Referral placed for gastroenterology consult so she can review her concern about her hemorrhoids which is very challenging for her and also thin history colon cancer her concern about polyps as well. Reviewed her trauma so many exams under emergent conditions and discussed for any pelvic exam to that trauma discussed ways of trying to help herself relax for next year's exam.\ She will be getting her CBC done soon to check the status of the anemia. Orders: Orders CT NG by PCR Today N89.8 - Other specified noninflammatory disorders of vagina Bacterial Vaginosis Panel Today N89.8 - Other specified noninflammatory disorders of vagina Referrals Gastroenterology Referral K64.4 - Residual hemorrhoidal skin tags, N88.9 - Noninflammatory disorder of cervix uteri, unspecified, N93.9 - Abnormal uterine and vaginal bleeding, unspecified, Z80.0 - Family history of malignant neoplasm of digestive organs Coding Level of Care Code Est Pt Prev Care 18-39y(35707) Diagnoses Abnormal uterine bleeding N93.9 Cervical lesion N88.9 Bleeding external hemorrhoids K64.4 Family hx of colon cancer Z80.0
== END 2024-01-15 15:48 | disposition home or self-care (01) ==
LOC: HO.HWSM 14:00
PROVIDERS: Visit Provider Advanced Practice Midwife
DX: Z01.419 Encounter for gynecological examination (general) (routine) without abnormal findings (principal); K64.4 Residual hemorrhoidal skin tags; Z80.0 Family history of malignant neoplasm of digestive organs
CPT/HCPCS: 99395

== ENCOUNTER 2024-05-13 09:57 | Outpatient (AMB) | payer OTHER, SELFPAY ==
--- NOTE | 2024-05-13 10:00 | A.OFFVIS_ITS ---
Vital Signs 05/13/24 10:01 Height 5 ft Weight 119 lb 0.794 oz BMI 23.2 BP 142/96 H Blood Pressure Location Rt brachial Position Sitting Respiration 16 Pulse 100 Pulse Source Pulse Oximeter Pulse Oximetry (%) 100 Oxygen Delivery Method Room Air Intake Visit Reasons: Residual hemorrhoidal skin tags Intake Note: NEW PATIENT for hemorrhoid mgmt. Prior hx of colo/egd? N Chief Complaint; C/O moderate to severe rectal bleeding, rectal pain, LLQ pain, and fecal inconsistencies for GI sx. Pt also reports experiencing general weakness, fatigue, and malaise. Pt has hx of anemia with transfusion but has not actually seen hematology. No additional concerns at this time. Facilities Maintenance Engineer Required: No Accompanied by: Self / Same As Patient Allergies No Known Allergies Allergy (Verified 05/13/24 10:00) HPI HPI Residual hemorrhoidal skin tags: Details: 33-year-old female with past medical history of bleeding hemorrhoids, abnormal uterine bleeding, anemia, family history of colon cancer is here today for initial consultation. Patient reports feeling tired, history of anemia. Has not seen a farm crops teacher. History of transfusions in the past. Patient reports that her maternal grandmother was diagnosed with CRC in her 50s. Patient reports external hemorrhoids, blood after bowel movement when constipated. Sometimes no BM for 2-3 days. Patient reports also abdominal cramping when the no bowel movement. Occasional abdominal bloating and related also to constipation. Patient denies melena, unintentional weight loss. Patient also reports heavy periods. Last October patient was anemic, seen in the ER and then seen OBGYN. Does not appear that patient has a PCP. [facility], [facility] Medical History (Updated 05/13/24 @ 10:49 by Lizzie Vaughan, 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 [employer] Sexual orientation: Straight/Heterosexual Gender identity: Female Female Reproductive History Menstrual Age of Menarche: 8 Review of Systems Const Denies weight gain and Denies weight loss ENT Reports no additional complaints, Denies dysphagia and Denies odynophagia Card Reports no additional complaints Resp Reports no additional complaints GI Denies abdominal pain, Denies belching, Denies melena, Denies bloating, Reports hematochezia, Denies change in bowel habits, Reports constipation, Denies dysphagia, Denies excessive flatus, Denies dyspepsia, Denies heartburn, Denies diarrhea, Denies loose stools, Denies nausea, Denies odynophagia and Denies vomiting Reports no additional complaints Musc Reports no additional complaints Neuro Reports no additional complaints Psych Reports no additional complaints Endo Reports no additional complaints Physical Exam Vital Signs: Last Vital Signs Pulse 100 05/13/24 10:01 Resp 16 05/13/24 10:01 BP 142/96 H 05/13/24 10:01 Pulse Ox 100 05/13/24 10:01 Oxygen Delivery Method Room Air 05/13/24 10:01 BMI result Body Mass Index 23.2 Const General: healthy appearing, no acute distress and well developed Nutritional Appearance: well nourished Orientation/consciousness: patient oriented x3 Resp Effort & Inspection: normal respiratory effort, able to speak in complete sentences, no tracheal deviation and symmetric chest movement Auscultation: clear to auscultation bilaterally Cardio Rate: regular rate GI Inspection: Yes normal to inspection and No distended Palpation (GI): Soft to palpation, not firm, nontender and No hepatosplenomegaly present Auscultation: normal bowel sounds General: Yes no CVA tenderness Back/Spine/Pelvis Back: no CVA tenderness Skin General skin exam: elasticity normal, turgor normal and dry skin Neuro General: patient oriented x3 Psych Appearance: grossly normal Mental Status: mental status grossly normal Assessment & Plan Assessment & Plan (1) Family hx of colon cancer: Code(s): Z80.0 - Family history of malignant neoplasm of digestive organs Category: Medical (2) Bleeding external hemorrhoids: Code(s): K64.4 - Residual hemorrhoidal skin tags Category: Medical (3) Constipation: Code(s): K59.00 - Constipation, unspecified Qualifiers: Constipation type: slow transit constipation Qualified Code(s): K59.01 - Slow transit constipation (4) Anemia: Code(s): D64.9 - Anemia, unspecified Category: Medical Qualifiers: Anemia type: iron deficiency Iron deficiency anemia type: chronic blood loss Qualified Code(s): D50.0 - Iron deficiency anemia secondary to blood loss (chronic) Plan Will try to help patient find PCP. Will send her for blood work, message sent to surgical schedulers to bulk colonoscopy for patient. Patient has external hemorrhoids and heavy periods, sees Dr. James. Will send her to see Hematology. Patient might need iron infusion for now. See her in 6 weeks to discuss the prep. Patient will start taking senna daily to help her move her bowels. Increase fluid intake and activity to promote better bowel motility. Patient will call our office if she will have any GI concerning symptoms. She is agreeable to this plan and verbalizes understanding of instructions. She was given the opportunity to ask questions and all questions answered. Thank you for allowing me to participate in her care Orders: Orders IRON PROFILE 05/13/24 D64.9 - Anemia, unspecified Comprehensive Met. Panel 05/13/24 K21.9 - Gastro-esophageal reflux disease without esophagitis Complete Blood Count no Diff 05/13/24 K21.9 - Gastro-esophageal reflux disease without esophagitis Referrals Hematology & Oncology Referral D64.9 - Anemia, unspecified Medications: New sennosides (Natural Senna Laxative) 17.2 mg (2 x 8.6 mg) PO BEDTIME 60 tabs 3RF constipation K59.00 - Constipation, unspecified Coding Level of Care Code New Pt Level 4 (98485) Diagnoses Family hx of colon cancer Z80.0 Bleeding external hemorrhoids K64.4 Slow transit constipation K59.01 Constipation type: slow transit constipation Iron deficiency anemia due to chronic blood loss D50.0 Anemia type: iron deficiency Iron deficiency anemia type: chronic blood loss Time Spent (min) 45 Comment 30 minutes spent with patient and additional 15 minutes spent reviewing her records
[2024-05-13 10:01] VITALS: BP 142/96; PULSE 100; RESP 16; O2SAT 100; BMI 23.2
--- OUTSIDE RECORDS SUMMARY | 2024-05-13 11:53 | XMS_ITS | Data Portability ---
Author Organization [place] - [facility] [address] Address [address] [place] [address] Assessment No assessment recorded. Plan of Treatment Reminders Order Date Submit Date Provider Last Modified By Organization Details Last Modified Time Details Appointments None record ed. Lab None record ed. Referral None record ed. Procedures None record ed. Surgeries None record ed. Imaging None record ed. Medication Orders None record ed. Patient TargetsNo targets recorded. Patient InstructionsNo instructions recorded. Reason for Referral None Reported. Problems No Known Problems Procedures Surgical History Date Name Laterality Status Provider Name and Address Organization Details Recorded Time 5 OC-UDS Send Out Template NON DOT completed Kavita Poynette [place] - [facility] 04/01/2024 13:06:42 5 OC-DOT PHYSICAL completed Kavita Poynette [place] - [facility] 04/01/2024 08:39:12 Imaging Results None recorded. Procedure Notes None recorded. Medical Equipment None Reported. Allergies No known drug allergies Medications Name Sig Start Date Stop Date Status Note LastModified by Organization Details LastModified Time amoxicillin 875 mg-potassium clavulanate 125 mg tablet TAKE 1 TABLET BY MOUTH EVERY 12 HOURS 04/01 completed Not Available Not Available Not Available Vitals Date Recorded Body height Body mass index (BMI) Body weight Pain severity - 0-10 verbal numeric rating [Score] - Reported Body temperature Respiratory rate Heart rate Oxygen saturation Oxygen saturation in Arterial blood by Pulse oximetry Systolic blood pressure Diastolic blood pressure Provider Name and Address Organization Details Last Updated DateTime 5 154.94 cm 23.6 kg/m2 18644.0 5 g 0 98 [degF] 16 /min 78 /min 98 % 98 % 138 mm[Hg] 90 mm[Hg] Kavita Poynette [place] - [facility] 08:42:38 Social History None recorded. Functional Status None recorded. Mental Status None recorded. Family History Nothing Reported. Medical History No medical history recorded. Gynecological HistoryNo gynecological history recorded. 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 Denies any RX. Refer to scanned DOT physical exam forms and DOT certificat e for exam findings. Physical examination 588 0005 Z02.4 Health Concerns Section Related Observation LastModified by Organization Detai ls LastModified Time None Recorded Concern Status LastModified by Organization Details LastModified Time None Recorded Advance Directives Directive None Recorded Payers Encounter Date Sequence Insurance Name Policy Number Policy Tillman Covered Member ID Tillman Member ID Guarantor Name 04/01/2024 OC-ESCREEN Vicky Arizmendi PERFORMANCE FOREIGN SERVICE OFFICER Vicky Arizmendi OBGyn Episode No OBEpisode recorded.
--- OUTSIDE RECORDS SUMMARY | 2024-05-13 11:53 | XMS_ITS | Continuity of Care Document ---
Author Organization [facility] Address [address] [place] [address] Phone Care Team Providers Care Country Manager Name Role Phone Bethany Ann DO Unavailable Unavailable Procedures Procedure Date INITIAL HOSPITAL CARE Advance Directives Directive Yes / No Effective Date File Name No Information Encounters Encounter Description Practice Location Reason(s) For Visit Diagnoses Date Provider Providers Copied on Encounter [facility], [address], [place], [id number], [place] tel:[phone] No Information Seth Sims. [address] [place], [address], [place]. tel: [phone] [facility]IAL [facility] CARE [facility], [address], [place], [id number], [place] tel:[phone] [facility] IP No Information Staci Alvarez. [address], [place], [id number]. tel: [phone] Referring Provider: Antonio Melvin, [address] [place], [address]. tel: [phone] Family History Family Member Type Diagnosis Age At Onset No Information Payers Payer name Insurance type Covered green party ID Authoriza tion(s) No Information Social History [...]
== END 2024-05-13 10:45 | disposition home or self-care (01) ==
PROVIDERS: Visit Provider Nurse Practitioner Family
DX: Z80.0 Family history of malignant neoplasm of digestive organs (principal); K64.4 Residual hemorrhoidal skin tags; K59.01 Slow transit constipation; D50.0 Iron deficiency anemia secondary to blood loss (chronic)
CPT/HCPCS: 99204

== ENCOUNTER 2024-05-13 09:57 | Outpatient (REF) | payer OTHER, SELFPAY ==
[2024-05-13 11:51] LABS: Hematocrit 28.6 % (37.0-47.0); Hemoglobin 8.4 g/dl (12.0-16.0); Mean Corpuscular HGB Conc 29.4 g/dl (31.0-35.0); Mean Corpuscular Hemoglobin 19.7 pg (27.0-33.0); Mean Corpuscular Volume 67.1 fL (80.0-98.0); Mean Platelet Volume 9.8 fL (9.4-12.3); Platelet Count 236 X10*3/uL (160-400); Red Blood Count 4.26 X10*6/uL (4.20-5.50); Red Cell Distribution Width 17.5 % (11.0-16.0); White Blood Count 4.7 X10*3/uL (4.8-10.8)
[2024-05-13 12:21] LABS: Alanine Aminotransferase 17 U/L (0-31); Albumin Level 4.2 g/dL (3.5-5.0); Alkaline Phosphatase 62 U/L (39-117); Anion Gap 12 (12-20); Aspartate Amino Transferase 14 U/L (5-31); Bilirubin Total 0.4 mg/dL (0.0-1.0); Blood Urea Nitrogen 12 mg/dL (9-16); Calcium 8.3 mg/dL (8.4-10.2); Carbon Dioxide 22 mmol/L (22-29); Chloride 108 mmol/L (96-108); Estimated Glomerular Filt Rate > 60; Glucose Random 89 mg/dL (60-115); Iron 13 mcg/dL (30-160); Percent Iron Saturation 3 % (15-50); Potassium 4.1 mmol/L (3.3-5.1); Sodium 138 mmol/L (135-145); Total Iron Binding Capacity 505 mcg/dL (228-428); Total Protein 7.9 g/dL (6.5-8.0); Unsaturated Iron Binding 492 ug/dL
--- OUTSIDE RECORDS SUMMARY | 2024-05-13 13:37 | XMS_ITS | Continuity of Care Document ---
Author Organization [facility] Address [address] [place] [address] Phone Care Team Providers Care Tar Boiler Name Role Phone Bethany Ann DO Unavailable Unavailable Procedures Procedure Date INITIAL HOSPITAL CARE Advance Directives Directive Yes / No Effective Date File Name No Information Encounters Encounter Description Practice Location Reason(s) For Visit Diagnoses Date Provider Providers Copied on Encounter [facility], [address], [place], [id number], [place] tel:[phone] No Information Seth Sims. [address] [place], [address], [place]. tel: [phone] [facility], [address], [place], [id number], [place] tel:[phone] [facility] IP No Information Staci Alvarez. [address], [place], [id number]. tel: [phone] Referring Provider: Antonio Melvin, [address] [place], [address]. tel: [phone] Family History Family Member Type Diagnosis Age [...]
== END 2024-05-13 09:58 | disposition home or self-care (01) ==
LOC: HO.LAB 09:57
PROVIDERS: Visit Provider Nurse Practitioner Family
DX: D64.9 Anemia, unspecified (principal); K21.9 Gastro-esophageal reflux disease without esophagitis; D50.0 Iron deficiency anemia secondary to blood loss (chronic); K59.01 Slow transit constipation; K64.4 Residual hemorrhoidal skin tags; Z80.0 Family history of malignant neoplasm of digestive organs
CPT/HCPCS: 36415; 80053; 83540; 85027; 99202

== ENCOUNTER → 2024-06-17 13:22 | Outpatient (BNV) | payer OTHER, SELFPAY | PROVIDERS: Referring Provider Nurse Practitioner Family; Visit Provider Internal Medicine Medical Oncology | DX: D64.9 Anemia, unspecified (principal) | CPT/HCPCS: 99204 ==

== ENCOUNTER 2024-06-24 08:49 | Outpatient (AMB) | payer OTHER, SELFPAY ==
[2024-06-24 08:52] VITALS: BP 116/78; PULSE 86; O2SAT 100; BMI 22.7
--- NOTE | 2024-06-24 08:52 | MHC.OFFVIS ---
Vital Signs 06/24/24 08:52 Height 5 ft 1 in Weight 120 lb BMI 22.7 BP 116/78 Blood Pressure Location Rt brachial Position Sitting Pulse 86 Pulse Source Pulse Oximeter Pulse Oximetry (%) 100 Oxygen Delivery Method Room Air Intake Visit Reasons: hemorrhoid, anemia Intake Note: ESTABLISHED PATIENT for hemorrhoid and constipation mgmt. Chief Complaint; C/O sx persistence despite being established on therapy since last visit. Pt still reporting BRB per rectum, and difficulty with evacuation. No additional concerns at this time pertaining to GI. Territory Sales Consultant Required: No Accompanied by: Self / Same As Patient Allergies No Known Allergies Allergy (Verified 06/24/24 08:52) HPI HPI hemorrhoid, anemia: Details: LAST VISIT: Family hx of colon cancer Bleeding external hemorrhoids Constipation Anemia Plan Will try to help patient find PCP. Will send her for blood work, message sent to surgical schedulers to bulk colonoscopy for patient. Patient has external hemorrhoids and heavy periods, sees Dr. James. Will send her to see Hematology. Patient might need iron infusion for now. See her in 6 weeks to discuss the prep. Patient will start taking senna daily to help her move her bowels. Increase fluid intake and activity to promote better bowel motility. Patient will call our office if she will have any GI concerning symptoms. She is agreeable to this plan and verbalizes understanding of instructions. She was given the opportunity to ask questions and all questions answered. ? Thank you for allowing me to participate in her care Orders Orders IRON PROFILE 05/13/24 D64.9 Comprehensive Met. Panel 05/13/24 K21.9 Complete Blood Count no Diff 05/13/24 K21.9 Referrals Hematology & Oncology Referral D64.9 Medications New sennosides (Natural Senna Laxative) 17.2 mg (2 x 8.6 mg) PO BEDTIME 60 tabs 3RF constipation K59.00 TODAY'S VISIT: Patient is here today for follow-up. Patient reports that she has been doing little better, however she continues to have constipation and sometimes blood with wiping after bowel movement. She patient reports taking senna the, however few like it is not really helping. Patient is also taking iron daily due to her low iron and ferritin levels. Patient saw Dr. Howe and they have decided that patient will stay on oral iron before starting her on IV iron infusions. Patient reports occasional abdominal bloating. Denies dyspepsia, dysphagia or odynophagia. [facility] Medical History Anemia Surgical History H/O cervical polypectomy Hx of dilation and curettage Family History Maternal Grandmother Colon cancer Social History Household Members: Spouse and Children Housing: Apartment Are you a primary pharmacy customer care specialist to a significant other at home: Yes Do you presently have visiting nurse or other home services: No Alcohol intake: current Alcohol intake frequency: 0-2 drinks per day Patient Tobacco Use Status: Current everyday Tobacco user Tobacco use type: Cigarette Substance Use Type: Marijuana service: No Current occupational status: unemployed 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 [employer] Sexual orientation: Straight/Heterosexual Gender identity: Female Female Reproductive History Menstrual Age of Menarche: 8 Review of Systems Const Denies weight gain and Denies weight loss ENT Reports no additional complaints, Denies dysphagia and Denies odynophagia Card Reports no additional complaints Resp Reports no additional complaints GI Denies abdominal pain, Denies belching, Denies melena, Denies bloating, Reports hematochezia (Occasional), Denies change in bowel habits, Reports constipation, Denies dysphagia, Denies excessive flatus, Denies dyspepsia, Denies heartburn, Denies diarrhea, Denies loose stools, Denies nausea, Denies odynophagia and Denies vomiting Musc Reports no additional complaints Neuro Reports no additional complaints Psych Reports no additional complaints Endo Reports no additional complaints Physical Exam Vital Signs: Last Vital Signs Pulse 86 06/24/24 08:52 BP 116/78 06/24/24 08:52 Pulse Ox 100 04/15/25 08:52 Oxygen Delivery Method Room Air 06/24/24 08:52 BMI result Body Mass Index 22.7 Const General: healthy appearing, no acute distress and well developed Nutritional Appearance: well nourished Orientation/consciousness: patient oriented x3 Resp Effort & Inspection: normal respiratory effort, able to speak in complete sentences, no tracheal deviation and symmetric chest movement Auscultation: clear to auscultation bilaterally Cardio Rate: regular rate GI Inspection: Yes normal to inspection and No distended Palpation (GI): Soft to palpation, not firm, nontender and No hepatosplenomegaly present Auscultation: normal bowel sounds General: Yes no CVA tenderness Back/Spine/Pelvis Back: no CVA tenderness Skin General skin exam: elasticity normal, turgor normal and dry skin Neuro General: patient oriented x3 Psych Appearance: grossly normal Mental Status: mental status grossly normal Results Reviewed Results Reviewed: Laboratory Tests 06/17/24 14:05 Hgb 9.2 L Hct 32.7 L MCV 70.0 L Iron 24 L TIBC 524 H % Saturation 5 L Ferritin 4 L AST 14 ALT 8 Vitamin B12 330 Folate 8.2 Tiss Transglutamin IgA <1.0 Assessment & Plan Assessment & Plan (1) Anemia: Code(s): D64.9 - Anemia, unspecified Category: Medical Qualifiers: Anemia type: iron deficiency Iron deficiency anemia type: chronic blood loss Qualified Code(s): D50.0 - Iron deficiency anemia secondary to blood loss (chronic) (2) Family hx of colon cancer: Code(s): Z80.0 - Family history of malignant neoplasm of digestive organs Category: Medical (3) Bleeding external hemorrhoids: Code(s): K64.4 - Residual hemorrhoidal skin tags Category: Medical (4) Constipation: Code(s): K59.00 - Constipation, unspecified Qualifiers: Constipation type: slow transit constipation Qualified Code(s): K59.01 - Slow transit constipation Plan Patient will start taking Dulcolax and stop senna. Increase fluid intake and activity to promote better bowel motility. Patient may use [id number] stool softeners. She is currently on iron and that is making her more constipated. Increase fluid intake and activity to promote better bowel motility. Increase vegetables in her diet. Follow-up in 3 months. Patient will be sent for upper endoscopy and colonoscopy. Continue avoiding dietary triggers and late night snacking, staying upright for minimum 3 hours after meals discussed with patient. Patient is agreeable to this plan and verbalizes understanding of instructions. She was given the opportunity to ask questions and all questions answered. Thank you for allowing me to participate in her care Medications: New bisacodyl (Dulcolax (bisacodyl)) 10 mg (2 x 5 mg) PO BEDTIME 180 tabs 4RF Discontinued sennosides Discontinued Reason: Doctor's Order 17.2 mg (2 x 8.6 mg) PO BEDTIME 60 tabs 3RF constipation K59.00 - Constipation, unspecified Coding Level of Care Code Est Pt Level 3 (11726) Diagnoses Iron deficiency anemia due to chronic blood loss D50.0 Anemia type: iron deficiency Iron deficiency anemia type: chronic blood loss Family hx of colon cancer Z80.0 Bleeding external hemorrhoids K64.4 Slow transit constipation K59.01 Constipation type: slow transit constipation Time Spent (min) 30 Comment 20 minutes spent with patient and additional 10 minutes spent reviewing her records
--- OUTSIDE RECORDS SUMMARY | 2024-06-24 09:12 | XMS_ITS | Data Portability ---
Author Organization [place] - [facility] [address] Address [address] [place] [address] Assessment No assessment recorded. Plan of Treatment [...] Send Out Template NON DOT completed Kavita [place] - [facility] 04/01/2024 13:06:42 5 OC-DOT PHYSICAL completed Kavita [place] - [facility] 04/01/2024 08:39:12 Imaging [...] Updated DateTime 5 154.94 cm 23.6 kg/m2 57982.0 5 g 0 98 [degF] 16 /min 78 /min 98 % 98 % 138 mm[Hg] 90 mm[Hg] Kavita [place] - [facility] 08:42:38 Social History None recorded. Functional Status None recorded. Mental Status None recorded. Family History Nothing Reported. Medical History No medical history recorded. Gynecological HistoryNo gynecological history recorded. Obstetrics History GPAL:G 0 P 0 0 0 0 Past Encounters Encounter ID Performer Location Encounter Start Date Encounter Closed Date Diagnosis/Indication Diagnosis SNOMED-CT Code Diagnosis ICD10 Code Diagnosis Note [id number] [address] [facility] [place] [id number] 10/04/2020 18:05:58 10/04/2020 19:20:07 [id number] DELL Rodriguez [address] 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
--- OUTSIDE RECORDS SUMMARY | 2024-06-24 09:12 | XMS_ITS | Continuity of Care Document ---
Author Organization [facility] Address [address] [place] [address] Phone Care Team Providers Care Suction Roller Name Role Phone Bethany Ann DO Unavailable Unavailable Procedures Procedure Date INITIAL HOSPITAL CARE Advance Directives Directive Yes / No Effective Date File Name No Information Encounters Encounter Description Practice Location Reason(s) For Visit Diagnoses Date Provider Providers Copied on Encounter [facility], [address], [place], [id number], [place] tel:[phone] No Information Seth Sims. [address] [place], [address], [place]. tel: [phone] INITIAL HOSPITAL CARE [facility], [address], [place], [id number], [place] tel:[phone] [facility] IP No Information Staci Alvarez. [address], [place], [id number]. tel: [phone] Referring Provider: Antonio Melvin, [address] [place], [address]. tel: [phone] Family History Family Member Type Diagnosis Age [...]
--- OUTSIDE RECORDS SUMMARY | 2024-06-24 09:12 | XMS_ITS ---
Author Name [facility] Organization Unknown Encounters Encounter Type Encounter Reason Primary Diagnosis Location Date [facility]ulatory [facility]. ([id number]) 04/01/2024
== END 2024-06-24 09:16 | disposition home or self-care (01) ==
PROVIDERS: Visit Provider Nurse Practitioner Family
DX: D50.0 Iron deficiency anemia secondary to blood loss (chronic) (principal); Z80.0 Family history of malignant neoplasm of digestive organs; K64.4 Residual hemorrhoidal skin tags; K59.01 Slow transit constipation
CPT/HCPCS: 99213

== ENCOUNTER → 2024-06-24 08:49 | Outpatient (BNVA) | payer OTHER, SELFPAY | PROVIDERS: Visit Provider Nurse Practitioner Family | DX: K64.4 Residual hemorrhoidal skin tags (principal); K59.01 Slow transit constipation; D50.0 Iron deficiency anemia secondary to blood loss (chronic); Z80.0 Family history of malignant neoplasm of digestive organs | CPT/HCPCS: 99212 ==

== ENCOUNTER 2024-08-12 09:34 | Day surgery (SDC) | payer OTHER, SELFPAY ==
--- OUTSIDE RECORDS SUMMARY | 2024-07-29 14:10 | XMS_ITS | Data Portability ---
Author Organization [place] - [facility] [address] Address [address] [place] [address] Assessment No assessment recorded. Plan of Treatment [...] Send Out Template NON DOT completed Kavita [place] - [facility] 04/01/2024 13:06:42 5 OC-DOT PHYSICAL completed Kavita [place] - [facility] 04/01/2024 08:39:12 Imaging [...] height Body mass index (BMI) Body weight Body temperature Respiratory rate Heart rate Oxygen saturation Oxygen saturation in Arterial blood by Pulse oximetry Systolic blood pressure Diastolic blood pressure Provider Name and Address Organization Details Last Updated DateTime 5 154.94 cm 23.6 kg/m2 22181.0 5 g 98 [degF] 16 /min 78 /min 98 % 98 % 138 mm[Hg] 90 mm[Hg] Kavita [place] - [facility] 5 08:42:38 Social History None recorded. Functional Status None recorded. Mental Status None recorded. Family History Nothing Reported. Medical History No medical history recorded. Gynecological HistoryNo gynecological history recorded. 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
--- NOTE | 2024-08-11 13:15 | HO.ANESPROP2 ---
Documented by User: Cora Barry NP 08/11/24 13:15 HPI - Anesthesia Eval Consult details Narrative: 33yo F for Upper Endoscopy and Colonoscopy [facility] Active Problems Active Problems: All Active Problems Anemia (Acute) Family hx of colon cancer (Acute) Bleeding external hemorrhoids (Acute) Cervical lesion (Acute) Abnormal uterine bleeding (Acute) Past Medical History Medical History Anemia Family History Family History Maternal Grandmother Colon cancer Family history of problems with anesthesia: No Surgical History Surgical History H/O cervical polypectomy Hx of dilation and curettage History of Problems with Anesthesia: No Social History Social History Household Members: Spouse and Children Housing: Apartment Are you a primary nursing care attendant to a significant other at home: No Do you presently have visiting nurse or other home services: No Alcohol intake: current Alcohol intake frequency: holidays/special occasions only Patient Tobacco Use Status: Current everyday Tobacco user Tobacco use type: Cigarette Cigarettes Per Day: 5 Substance Use Type: Marijuana service: No Current occupational status: unemployed 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 [employer] Sexual orientation: Straight/Heterosexual Gender identity: Female Meds Allergies Allergy/AdvReac Type Severity Reaction Status Date / Time No Known Allergies Allergy Verified 06/24/24 08:52 Home Medications ?Medication ?Instructions ?Recorded ?Confirmed ?Last Taken ?Type guar gum 1 gram chewable tablet g PO DAILY 06/24/24 Unknown History Assessment and Plan Assessment Anesthesia Assessment: Chart Reviewed Final Anesthetic Review Family History of Problems with Anesthesia: No History of Problems with Anesthesia: No Documented by User: Sriram Reynolds MD 08/12/24 11:59 [facility] Past Medical History Medical History Anemia Patient : No Family History Family History Maternal Grandmother Colon cancer Surgical History Surgical History H/O cervical polypectomy Hx of dilation and curettage Social History Social History Household Members: Spouse and Children Housing: Apartment Are you a primary nursing care attendant to a significant other at home: No Do you presently have visiting nurse or other home services: No Alcohol intake: current Alcohol intake frequency: holidays/special occasions only Patient Tobacco Use Status: Current everyday Tobacco user Tobacco use type: Cigarette Cigarettes Per Day: 5 Substance Use Type: Marijuana service: No Current occupational status: unemployed 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 [employer] Sexual orientation: Straight/Heterosexual Gender identity: Female Meds Allergies Allergy/AdvReac Type Severity Reaction Status Date / Time No Known Allergies Allergy Verified 06/24/24 08:52 Home Medications ?Medication ?Instructions ?Recorded ?Confirmed ?Last Taken ?Type guar gum 1 gram chewable tablet g PO DAILY 06/24/24 Unknown History Exam Airway Mallampati Class: II TM Dist: <=3cm Neck ROM: Full Loose/Missing/Broken Teeth: No Heart: ok Lungs: ok Assessment and Plan Assessment Anesthesia Assessment: Anesthesia Plan Discussed Final Anesthetic Review NPO: Yes ASA Class: II Final Preanesthetic Review: No Changes in Pt Med Stat, Meds/Allgs Chart Reviewed, Consent Obtained/Reviewed and Anes Risks/Benef Reviewed Patient Risk: Low Procedure Risk: Intermediate Anesthetic Plan Anesthetic Plan: Agree w/ Assess. and Plan and TIVA Disposition: Standard PACU
[2024-08-12 10:33] LABS: UPreg QC Valid YES; Urine Pregnancy NEGATIVE (NEGATIVE)
[2024-08-12] MEDS: Lactated Ringers 1,000 ML 100 ML IVCONT (10:52)
[2024-08-12 10:54] VITALS: BP 117/87; PULSE 80; RESP 12; TEMP 36.6; O2SAT 98; BMI 22.1
--- NOTE | 2024-08-12 11:07 | P.HPSUR_ITS ---
Pre-Procedural Eval Section A - 24 Hr Update-Section A only Date of Service: 08/12/24 Section B - Complete if H&P > 30 days Chief Complaint: anemia, rectal bleeding Details of Present Illness: Anemia Surgical History H/O cervical polypectomy Hx of dilation and curettage Present Medications: see Short Stay Collaborative assessment Allergies: Allergies Allergy/AdvReac Type Severity Reaction Status Date / Time No Known Allergies Allergy Verified 06/24/24 08:52 Review of Systems Review of Systems Comment: Ten point ROS negative Exam Exam Comment: Gen appear: No acute distress HEENT: no icterus Chest: No overt resp distress Abd: soft, nontender, nondistended Psych: Stable affect, answering questions appropriately Neuro: A/Ox3 noted to move all extremities spontaneously Ext: no peripheral edema Plan Diagnosis/Plan: Unchanged I have reviewed the history and physical and performed a pertinent physical examination on my patient. No changes have occurred unless specified. Time Spent With Patient Time: Total time managing care of this patient today ____ minutes.
--- NOTE | 2024-08-12 11:49 | P.OPN-COLO_ITS ---
Colonoscopy Operative Note Operative Note Date of Service: 08/12/24 Narrative: Procedure: Upper endoscopy and colonoscopy Indication: Rectal bleeding, anemia Endoscopist: Rosanne Millard MD Anesthesia Provider: Dr Sriram Reynolds Anesthesia type: MAC Instrument: [id number] and [id number]-[id number] EGD Procedure:?? The procedure, indications, preparation and potential complications were reviewed with the patient, who indicated understanding and gave written informed consent to proceed. The endoscope was introduced through the mouth, and advanced to the 2nd part of the duodenum. The mucosa was carefully examined on slow withdrawal of the endoscope. The patient tolerated the procedure well. There were no immediate complications.? EGD Findings:? * Esophagus:? Normal esophageal mucosa was noted. The Z-line was at 36 cm. * Stomach:? Normal gastric mucosa. Retroflexion was performed in the cardia. Random cold forceps biopsies were taken from the stomach. * Duodenum:? A few polyps were noted in the duodenal bulb. Cold forceps biopsies were taken for histology. Remaining mucosa was normal to the extent examined. Cold forceps biopsies were taken from the duodenal bulb and 2nd portion of the duodenum to rule out celiac sprue. Colonoscopy Procedure:? The patient was then turned for the colonoscopy. A digital rectal exam was performed which was normal.? A distal attachment cap was affixed to the tip of the scope and the colonoscope was then inserted through the anus and advanced through the colon and advanced to the cecum at 75 cm and terminal ileum.? Appendiceal orifice and ileocecal valve were identified. Mucosa was carefully examined under high definition white light as the instrument was slowly withdrawn in a retrograde panoramic fashion. Retroflexion was performed in rectum. The procedure was not difficult. The quality of the prep was BBPS: 3+3+3 = adequate Withdrawal time 7 minutes Limitations: No limitations Findings: Mucosa: Normal colon and terminal ileum mucosa. Protruding lesions: * Large internal hemorrhoids with active bleeding. Impression: 1. Normal esophagus 2. Normal stomach (biopsy) 3. Duodenal bulb polyps (biopsy) 4. Normal duodenal mucosa (biopsy) 5. Normal colon and terminal ileum mucosa 6. Internal hemorrhoids with active oozing Recommendations:?? * Follow-up path results * Start ansuol suppository once daily at night time x 10-12 days * Sitz baths * Increase fiber intake * Avoid constipation and straining * If limited response to medical management, will need surgical referral * Start asymptomatic CRC screening at 44 y.o
[2024-08-12 12:38] VITALS: BP 130/95; PULSE 92; RESP 16; TEMP 37.1; O2SAT 100
[2024-08-12 12:53] VITALS: BP 131/101; PULSE 76; RESP 16; TEMP 36.4; O2SAT 100
== END 2024-08-12 13:10 | disposition home or self-care (01) ==
PROVIDERS: Nurse Practitioner; Visit Provider Internal Medicine
PROC: (CPT 45378; principal; 2024-08-12 11:30)
DX: K62.5 Hemorrhage of anus and rectum (principal); D50.9 Iron deficiency anemia, unspecified; K64.8 Other hemorrhoids; K64.4 Residual hemorrhoidal skin tags; K59.01 Slow transit constipation; K21.9 Gastro-esophageal reflux disease without esophagitis; K29.50 Unspecified chronic gastritis without bleeding; B96.81 Helicobacter pylori [H. pylori] as the cause of diseases classified elsewhere; K31.7 Polyp of stomach and duodenum; Z79.899 Other long term (current) drug therapy; Z98.890 Other specified postprocedural states; F17.210 Nicotine dependence, cigarettes, uncomplicated
CPT/HCPCS: 45378; 43239; 81025; 88305; 88342; J2003; J2704; J3010

== ENCOUNTER → 2024-08-12 09:34 | Outpatient (BNV) | payer OTHER, SELFPAY | PROVIDERS: Visit Provider Internal Medicine | DX: D64.9 Anemia, unspecified (principal); K62.5 Hemorrhage of anus and rectum; K64.8 Other hemorrhoids | CPT/HCPCS: 43239; 45378 ==

== ENCOUNTER 2024-08-16 13:48 | Inpatient (IN) | payer OTHER, SELFPAY ==
--- NOTE | ~2024-08-16 | CT_ITS ---
CLINICAL HISTORY: LGIB CT abdomen and pelvis with and without contrast Comparison: None Findings: No consolidation or effusion. Unremarkable gallbladder. No biliary ductal dilatation. There is a 4.4 cm x 2.6 cm hypodense lesion in the right hepatic lobe and there is 1.8 cm hypodense lesion in the left hepatic lobe. Postcontrast administration during arterial phase most lesions demonstrate peripheral nodular enhancement. During venous phase the smaller lesion in left hepatic lobe fills in with contrast in the larger lesion in the right hepatic lobe partially fills in with contrast. Findings are suggestive of hepatic hemangiomas. The spleen, pancreas, adrenal glands and kidneys are unremarkable. No renal or ureteral stones. No hydronephrosis or hydroureter. Normal enhancement of bilateral kidneys. No perinephric stranding. No bowel obstruction, pneumoperitoneum, or pneumatosis. No definite site of active GI bleeding is identified on arterial and venous phases. No free fluid. No loculated fluid collection. The appendix is unremarkable. Pelvic contents unremarkable. 1.3 cm right ovarian cyst likely physiologic. Abdominal aorta normal in size with no aneurysm and there is no evidence of occlusion major arteries. The bones are intact. IMPRESSION: 1. No site of active GI bleed is identified. 2. No acute findings. 3. Hepatic hemangiomas. This document has been electronically signed by: Ilene Cooper MD on 08/16/2024 22:06:25
--- NOTE | ~2024-08-16 | XR_ITS ---
CLINICAL HISTORY: r o free air perf. s p colonoscopy 2 view chest x-ray Comparison: None Findings: No consolidation or effusion. Heart size is normal. No acute fracture. IMPRESSION: 1. No acute findings. No subdiaphragmatic free air. This document has been electronically signed by: Kirill Jolley MD on 08/16/2024 15:25:50
[2024-08-16 14:45] VITALS: BP 118/88; PULSE 89; RESP 18; TEMP 37; O2SAT 99; BMI 22.5
--- NOTE | 2024-08-16 14:45 | ED_ITS ---
HPI - GI Bleed General Chief complaint: GI Bleed Stated complaint: rectal bleeding Time Seen by Provider: 08/16/24 19:39 Source: patient Limitations: no limitations History of Present Illness HPI Narrative: 33-year-old female with a known internal hemorrhoids, with recent colonoscopy by Dr. Millard on August 12, presents with bright red blood per rectum. Patient states every time she has a bowel movement, she is having large volume bleeding, since she had her colonoscopy. Today, she had 4 episodes. Associated nausea, dizziness and lower abdominal cramping. Denies fever Related Data Home Medications ?Medication ?Instructions ?Recorded ?Confirmed guar gum 1 gram chewable tablet g PO DAILY 06/24/24 Previous Rx's ?Medication ?Instructions ?Recorded ascorbate calcium (vitamin C) 500 500 mg PO BID #60 tabs 05/13/24 mg tablet ferrous sulfate 325 mg (65 mg 325 mg PO BID #60 tabs 05/13/24 iron) tablet bisacodyl 5 mg tablet,delayed 10 mg (2 x 5 mg) PO BEDTIME #180 06/24/24 release (Dulcolax (bisacodyl)) tabs hydrocortisone acetate 25 mg 25 mg IL BEDTIME Bleeding 08/12/24 rectal suppository (Anusol-HC) hemorrhoids #12 ea hydrocortisone 2.5 % topical cream 1 appl IL BEDTIME hemorrhoids 14 08/14/24 with perineal applicator days #30 grams Allergies Allergy/AdvReac Type Severity Reaction Status Date / Time No Known Allergies Allergy Verified 08/16/24 14:48 Review of Systems 2 Review of Systems: Yes all other systems are reviewed and are negative Constitutional: Constitutional: Reports fatigue, Denies fever(s) and Reports weakness ENT: Reports dizziness Cardiovascular: Cardiovascular: Denies chest pain and Denies dyspnea Respiratory: Respiratory: Denies dyspnea Gastrointestinal: Gastrointestinal: Reports abdominal pain, Reports hematochezia, Reports loose stools, Reports nausea and Denies vomiting Neurologic: Reports dizziness and Reports weakness Endocrine: Endocrine: Reports fatigue PMFSH Past Medical History Attestation statement: The following information was validated with the patient. Medical History Anemia Surgical History H/O cervical polypectomy Hx of dilation and curettage Family History Family History Maternal Grandmother Colon cancer Social History Social History Household Members: Spouse and Children Housing: Apartment Are you a primary palliative care coordinator to a significant other at home: No Do you presently have visiting nurse or other home services: No Alcohol intake: current Alcohol intake frequency: holidays/special occasions only Patient Tobacco Use Status: Current everyday Tobacco user Tobacco use type: Cigarette Cigarettes Per Day: 5 Smoked in Last 30 Days: No Use of substances other than those prescribed or required for medical reasons: No Substance Use Type: Marijuana Advance Directives: No Advance Directives Information Provided: No service: No Current occupational status: unemployed 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 [employer] Sexual orientation: Straight/Heterosexual Gender identity: Female Physical Exam 2 Vital Signs: Vital Signs: Last Vital Signs Temp 97.4 F 08/16/24 19:29 Pulse 71 08/16/24 19:29 Resp 16 08/16/24 19:29 BP 118/88 08/16/24 14:45 Pulse Ox 100 08/16/24 19:29 O2 Del Method Room Air 08/16/24 19:29 BMI result Body Mass Index 22.5 Const: Other: Alert, tearful Orientation/consciousness: patient oriented x3 Resp: Effort & Inspection: normal respiratory effort Cardio: Other: Normal peripheral perfusion GI: Other: Abdomen is soft, nondistended, mild generalized tenderness across lower abdomen no guarding Skin: Other: Warm dry no rash Neuro: General: patient oriented x3, gait normal, no focal motor deficits and CN's II-XI intact bilaterally Psych: Other: Cooperative, Course Course Course Narrative: This is a Rapid Medical Exam performed in triage by Mariann Manrique PA-C. Full HPI, ROS and PE to be performed by primary ED provider. 33 yo F w/PMHx presenting to the ED c/o bright red rectal bleeding s/p colonoscopy on (08/12) by Dr. Millard. Admits to abd pain and rectal pain when using bathroom. admits to assoc dizziness. denies AC use PE: NAD, nontoxic appearing, abdomen soft w/RUQ/lower abd ttp, no rebound or guarding Plan: labs, UA, CXR Consultations Consultation #1: per Linn, he reviewed the note from the colonoscopy, there were no polyps identified, she has hemorrhoids, another scope would be of no value, she needs a surgical consult.....will page Time: 22:46 Consultation #2: per Dr. Vasquez , he will admit Time: 23:10 Medications Administered Discontinued Medications Generic Name Dose Route Start Last Admin Trade Name Joyce PRN Reason Stop Dose Admin Iohexol 100 ml 08/16/24 20:46 08/16/24 20:46 Iohexol 350 Mg/Ml 100 Ml Infus..Btl IV 08/16/24 20:47 85 ml ONCE ONE Administration Morphine Sulfate 4 mg 08/16/24 20:13 08/16/24 20:49 Morphine Sulfate 4 Mg/Ml Cartridge IVPUSH 08/16/24 20:14 4 mg ONCE ONE Administration Protocol Medical Decision Making Medical Decision Making MDM Narrative: 33-year-old female with a known internal hemorrhoids, with recent colonoscopy by Dr. Millard on August 12, presents with bright red blood per rectum. Patient states every time she has a bowel movement, she is having large volume bleeding, since she had her colonoscopy. Today, she had 4 episodes. Associated nausea, dizziness and lower abdominal cramping. Denies fever. Problem: Known hemorrhoids History: Per patient I have considered the following differential diagnoses: Lower GI bleed, internal hemorrhoids, polyps, diverticulosis Plan: We will be obtaining a CT scan GI protocol, the patient dropped her H&H since June, we will repeat her H&H now, giving medication for her discomfort. I have independently reviewed the following tests: Labs: 1st H&H 8.3 and 27.9, the 2nd is 8.1 and 26.9, no leukocytosis, no electrolyte abnormality, not , urine not infected CT abdomen and pelvis:Findings: No consolidation or effusion. Unremarkable gallbladder. No biliary ductal dilatation. There is a 4.4 cm x 2.6 cm hypodense lesion in the right hepatic lobe and there is 1.8 cm hypodense lesion in the left hepatic lobe. Postcontrast administration during arterial phase most lesions demonstrate peripheral nodular enhancement. During venous phase the smaller lesion in left hepatic lobe fills in with contrast in the larger lesion in the right hepatic lobe partially fills in with contrast. Findings are suggestive of hepatic hemangiomas. The spleen, pancreas, adrenal glands and kidneys are unremarkable. No renal or ureteral stones. No hydronephrosis or hydroureter. Normal enhancement of bilateral kidneys. No perinephric stranding. No bowel obstruction, pneumoperitoneum, or pneumatosis. No definite site of active GI bleeding is identified on arterial and venous phases. No free fluid. No loculated fluid collection. The appendix is unremarkable. Pelvic contents unremarkable. 1.3 cm right ovarian cyst likely physiologic. Abdominal aorta normal in size with no aneurysm and there is no evidence of occlusion major arteries. The bones are intact. IMPRESSION: 1. No site of active GI bleed is identified. 2. No acute findings. 3. Hepatic hemangiomas. Lab Data 08/16/24 20:23 08/16/24 15:46 Labs: Lab Results 08/16/24 08/16/24 08/16/24 Range/Units 15:46 20:23 20:48 WBC 6.7 (4.8-10.8) X10*3/uL RBC 3.99 L (4.20-5.50) X10*6/uL Hgb 8.3 L 8.1 L (12.0-16.0) g/dl Hct 27.9 L 26.9 L (37.0-47.0) % MCV 69.9 L (80.0-98.0) fL MCH 20.8 L (27.0-33.0) pg MCHC 29.7 L (31.0-35.0) g/dl RDW 17.8 H (11.0-16.0) % Plt Count 362 (160-400) X10*3/uL MPV 9.2 L (9.4-12.3) fL Immature Gran % (Auto) 0.3 (0.0-0.4) % Neut % (Auto) 67.1 (45-73) % Lymph % (Auto) 21.4 (20-40) % Wilkinson % (Auto) 9.5 (2-11) % Eos % (Auto) 1.0 (0-4) % Baso % (Auto) 0.7 (0-2) % Lymph # (Auto) 1.4 (1.2-4.9) X10*3/uL [place]kinson # (Auto) 0.6 (0.1-1.2) X10*3/uL Eos # (Auto) 0.1 (0.0-0.4) X10*3/uL Baso # (Auto) 0.1 (0.0-0.2) X10*3/uL Abs Immat Gran (auto) 0.02 (0.00-0.03) X10*3/uL Absolute Neuts (auto) 4.5 (2.0-8.3) x10*3/uL Absolute Nucleated RBC 0.000 (0.0-0.012) X10*3/uL Nucleated RBC % (auto) 0.0 (0.0-0.2) /100WBC PT 12.3 (10.9-12.4) SEC INR 1.1 (0.9-1.1) Sodium 140 (135-145) mmol/L Potassium 3.8 (3.3-5.1) mmol/L Chloride 109 H (96-108) mmol/L Carbon Dioxide 21 L (22-29) mmol/L Anion Gap 14 (12-20) BUN 9 (9-16) mg/dL Creatinine 0.57 (0.5-1.4) mg/dL Estim Creat Clear Calc 104.9 Estimated GFR > 60 Random Glucose 87 (60-115) mg/dL Calcium 8.6 D (8.4-10.2) mg/dL Magnesium 1.7 (1.6-2.6) mg/dL Total Bilirubin 0.4 (0.0-1.0) mg/dL Direct Bilirubin 0.1 (0.0-0.5) mg/dL AST 16 (5-31) U/L ALT 8 (0-31) U/L Alkaline Phosphatase 49 (39-117) U/L Total Protein 6.9 (6.5-8.0) g/dL Albumin 4.2 (3.5-5.0) g/dL Lipase 17 (8-78) U/L Beta HCG, Quant < 2 mIU/mL Urine Color Yellow Urine Appearance Turbid Urine pH 6.0 (5.0-9.0) Ur Specific [place] >= 1.030 H (1.005-1.025) Urine Protein Negative (Neg-Trace) mg/dL Urine Glucose (UA) Negative (Negative) mg/dL Urine Ketones Negative (Negative) mg/dL Urine Blood Trace (Negative) Urine Nitrite Negative (Negative) Ur Leukocyte Esterase Negative (Negative) Urine RBC 0-2 (0-2) /HPF Urine WBC 0-5 (0-5) /HPF Ur Squamous Epith Cells 11-20 (0-2) /HPF Other Crystals Present Urine Bacteria Trace (None Seen) Hyaline Casts 3-5 (0-2) /LPF Discharge Plan Discharge Clinical Impression: Acute lower gastrointestinal bleeding Patient Disposition: Admitted As Inpatient
[2024-08-16 15:51] LABS: Basophils Absolute Auto 0.1 X10*3/uL (0.0-0.2); Basophils Percent Auto 0.7 % (0-2); Eosinophils Absolute Auto 0.1 X10*3/uL (0.0-0.4); Hematocrit 27.9 % (37.0-47.0); Hemoglobin 8.3 g/dl (12.0-16.0); Imm Gran Abs Auto 0.02 X10*3/uL (0.00-0.03); Imm Gran Pct Auto 0.3 % (0.0-0.4); Lymphocytes Absolute Auto 1.4 X10*3/uL (1.2-4.9); Lymphocytes Percent Auto 21.4 % (20-40); MANUAL DIFF FLAG NO; Mean Corpuscular HGB Conc 29.7 g/dl (31.0-35.0); Mean Corpuscular Hemoglobin 20.8 pg (27.0-33.0); Mean Corpuscular Volume 69.9 fL (80.0-98.0); Mean Platelet Volume 9.2 fL (9.4-12.3); Monocytes Absolute Auto 0.6 X10*3/uL (0.1-1.2); Monocytes Percent Auto 9.5 % (2-11); Neutrophils Absolute Auto 4.5 x10*3/uL (2.0-8.3); Neutrophils Percent Auto 67.1 % (45-73); Platelet Count 362 X10*3/uL (160-400); Red Blood Count 3.99 X10*6/uL (4.20-5.50); Red Cell Distribution Width 17.8 % (11.0-16.0); White Blood Count 6.7 X10*3/uL (4.8-10.8)
[2024-08-16 15:55] LABS: INTERNATIONAL NORM RATIO 1.1 (0.9-1.1); Prothrombin Time 12.3 SEC (10.9-12.4)
[2024-08-16 16:14] LABS: Alanine Aminotransferase 8 U/L (0-31); Albumin Level 4.2 g/dL (3.5-5.0); Anion Gap 14 (12-20); Aspartate Amino Transferase 16 U/L (5-31); Bilirubin Direct 0.1 mg/dL (0.0-0.5); Bilirubin Total 0.4 mg/dL (0.0-1.0); Blood Urea Nitrogen 9 mg/dL (9-16); Calcium 8.6 mg/dL (8.4-10.2); Carbon Dioxide 21 mmol/L (22-29); Chloride 109 mmol/L (96-108); Creatinine Clr Calc Pharmacy 104.9; Estimated Glomerular Filt Rate > 60; Glucose Random 87 mg/dL (60-115); Lipase 17 U/L (8-78); Magnesium 1.7 mg/dL (1.6-2.6); Potassium 3.8 mmol/L (3.3-5.1); Sodium 140 mmol/L (135-145); Total Protein 6.9 g/dL (6.5-8.0)
[2024-08-16 18:46] LABS: Alkaline Phosphatase 49 U/L (39-117)
[2024-08-16 19:29] VITALS: PULSE 71; RESP 16; TEMP 36.3; O2SAT 100
[2024-08-16 20:32] LABS: Hematocrit 26.9 % (37.0-47.0); Hemoglobin 8.1 g/dl (12.0-16.0)
[2024-08-16] MEDS: iohexoL 350 MG/ML 100 ML INFUS..BTL IV (20:46)
[2024-08-16] MEDS: Morphine Sulfate 4 MG/ML CARTRIDGE IVPUSH (20:49)
[2024-08-16 20:56] LABS: Appearance Urine Turbid; Color Urine Yellow; Glucose Urine UA Negative (Negative); Leukocyte Esterase Urine Negative (Negative); Nitrite Urine Negative (Negative); Specific Gravity - Urine >= 1.030 (1.005-1.025); UMIC TRIGGER UACC YES; Urine Blood Trace (Negative); Urine Ketones Negative (Negative); Urine Protein Negative (Neg-Trace)
[2024-08-16 21:00] LABS: HCG Quantitative < 2 mIU/mL
[2024-08-16 21:10] LABS: Bacteria Urine Trace (None Seen); Other Crystals Urine Present; RBC Urine 0-2 /HPF (0-2); WBC Urine 0-5 /HPF (0-5)
--- NOTE | 2024-08-16 23:05 | PC.NURSE ---
assumed care of the patient at 23:00. report received from Monik COOPER
[2024-08-17] VITALS (10 sets, daily range): BP systolic 109–149; BP diastolic 72–104; PULSE 70–97; RESP 16–18; TEMP 36.1–37.1; O2SAT 95–99; BMI 23.3
[2024-08-17] MEDS: 0.9 % Sodium Chloride Flush 3 ML SYRINGE IVFLUSH ×2 (00:17→23:26)
[2024-08-17] MEDS: Dextrose 5 % and Lactated Ring 1,000 ML 125 ML IVCONT ×3 (00:17→20:13)
--- NOTE | 2024-08-17 00:18 | PC.NURSE ---
pt resting comfortably on stretcher in no apparent distress. denies acute pain. reports relief of pain from prior morphine administration. iv fluids D5/LR started at 125ml/hr per mar. call isidro within reach, plan of care continues.
--- NOTE | 2024-08-17 06:10 | PC.NURSE ---
pt sleeping comfortably on stretcher in no apparent distress, respirations even and unlabored. call isidro within reach. plan of care continues
[2024-08-17 06:55] LABS: MANUAL DIFF FLAG NO
[2024-08-17 06:59] LABS: Basophils Percent Auto 0.7 % (0-2); Eosinophils Absolute Auto 0.1 X10*3/uL (0.0-0.4); Eosinophils Percent Auto 2.4 % (0-4); Hematocrit 26.6 % (37.0-47.0); Hemoglobin 7.6 g/dl (12.0-16.0); Imm Gran Abs Auto 0.01 X10*3/uL (0.00-0.03); Imm Gran Pct Auto 0.2 % (0.0-0.4); Lymphocytes Absolute Auto 1.4 X10*3/uL (1.2-4.9); Mean Corpuscular HGB Conc 28.6 g/dl (31.0-35.0); Mean Corpuscular Hemoglobin 20.3 pg (27.0-33.0); Mean Corpuscular Volume 70.9 fL (80.0-98.0); Mean Platelet Volume 9.7 fL (9.4-12.3); Monocytes Absolute Auto 0.5 X10*3/uL (0.1-1.2); Monocytes Percent Auto 11.5 % (2-11); Neutrophils Absolute Auto 2.2 x10*3/uL (2.0-8.3); Neutrophils Percent Auto 52.2 % (45-73); Platelet Count 307 X10*3/uL (160-400); Red Blood Count 3.75 X10*6/uL (4.20-5.50); Red Cell Distribution Width 17.4 % (11.0-16.0); White Blood Count 4.2 X10*3/uL (4.8-10.8)
--- NOTE | 2024-08-17 07:34 | PM.HPGS ---
History of Present Illness History of Present Illness Date of Service: 08/17/24 Chief complaint: bleeding hemorrhoids Narrative: Vicky Arizmendi is a 33 year old female presenting with complaints of bleeding per rectum. She reports the bleeding occurs every time she has a bowel movement. There is pain associated with every bowel movement as well. She underwent a colonoscopy and upper endoscopy performed by Dr. Millard on 08/12/2024. This was significant only for evidence of bleeding hemorrhoids. Since the colonoscopy she has had more intense bleeding especially after having a bowel movement. She reports having issue with bleeding once before and previously underwent polypectomy for bleeding. She reports needing a transfusion in the past as well. This morning she denies any pain or bleeding and has not had a bowel movement while in the emergency department. Workup in the emergency department has noted a drift downward for hemoglobin and hematocrit from 9.2 on 06/17/2024 to 7.6 this morning. Review of Systems Review of Systems: Yes all other systems are reviewed and are negative PMFSH Past Medical History Medical History Anemia Family History Family History Maternal Grandmother Colon cancer Surgical History Surgical History H/O cervical polypectomy Hx of dilation and curettage Social History Social History Household Members: Spouse and Children Housing: Apartment Are you a primary career consultant to a significant other at home: No Do you presently have visiting nurse or other home services: No Alcohol intake: current Alcohol intake frequency: holidays/special occasions only Patient Tobacco Use Status: Never used Tobacco Tobacco use type: Cigarette Cigarettes Per Day: 5 Smoked in Last 30 Days: No Use of substances other than those prescribed or required for medical reasons: No Substance Use Type: Marijuana Advance Directives: No Advance Directives Information Provided: No Nutrition Risks: No Nutritional Risk service: No Current occupational status: unemployed 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 [employer] Sexual orientation: Straight/Heterosexual Gender identity: Female Meds Allergies Allergy/AdvReac Type Severity Reaction Status Date / Time No Known Allergies Allergy Verified 08/16/24 14:48 Active Medications: Current Medications Acetaminophen (Acetaminophen 325 Mg Tablet) 650 mg PO Q6H PRN PRN Reason: Pain, Mild 1-3,fever,headache Calcium Carbonate (Calcium Carbonate 750 Mg Tab.Chew) 750 mg PO Q4H PRN PRN Reason: Heartburn Hydromorphone HCl (Hydromorphone Hcl 0.5 Mg/0.5 Ml Syringe) 0.5 mg IVPUSH Q3H PRN; Protocol PRN Reason: Pain, Severe (Pain Scale 7-10) Dextrose/Lactated Ringer's (D5lr) 1,000 mls @ 125 mls/hr IVCONT .Q8H [facility] Last Admin: 08/17/24 00:17 Dose: 125 mls/hr Magnesium Hydroxide (Milk Of Magnesia 30 Ml Oral.Susp) 30 ml PO DAILY PRN PRN Reason: Constipation Melatonin (Melatonin 3 Mg Tablet) 6 mg PO BEDTIME PRN PRN Reason: Insomnia Ondansetron HCl (Ondansetron Hcl 4 Mg/2 Ml Vial) 4 mg IVPUSH QID PRN PRN Reason: Nausea Oxycodone HCl (Oxycodone Hcl Immed Release 5 Mg Tablet) 5 mg PO Q6H PRN PRN Reason: Pain, Moderate(Pain Scale 4-6) Sodium Chloride (0.9 % Sodium Chloride Flush 3 Ml Syringe) 3 ml IVFLUSH QSHIFT [facility] Last Admin: 08/17/24 00:17 Dose: 3 ml Home Medications ?Medication ?Instructions ?Recorded ?Confirmed ?Last Taken ?Type guar gum 1 gram chewable tablet g PO DAILY 06/24/24 Unknown History Physical Exam Vital Signs: Vital Signs: Last Vital Signs Temp 98.2 F 08/17/24 06:10 Pulse 70 08/17/24 06:10 Resp 16 08/17/24 06:10 BP 122/87 08/17/24 06:10 Pulse Ox 98 08/17/24 06:10 O2 Del Method Room Air 08/17/24 06:10 BMI result Body Mass Index 22.5 Const: General: cooperative and no acute distress Nutritional Appearance: well nourished Orientation/consciousness: patient oriented x3 Limitations: no limitations HEENT: Head: Yes normocephalic and Yes atraumatic Ears: hearing grossly normal bilaterally Resp: Effort & Inspection: normal respiratory effort, no audible wheezes, no cough and no respiratory distress Cardio: Jugular venous distension: no JVD GI: Inspection: Yes normal to inspection Palpation (GI): Soft to palpation, nontender, no guarding and not rigid Skin: Other: Warm, dry, no rash Neuro: General: patient oriented x3 Extrem: General: Yes no clubbing, cyanosis or edema Results Results Labs: Short CBC 08/16/24 08/16/24 08/17/24 Range/Units 15:46 20:23 06:17 WBC 6.7 4.2 L (4.8-10.8) X10*3/uL Hgb 8.3 L 8.1 L 7.6 L (12.0-16.0) g/dl Hct 27.9 L 26.9 L 26.6 L (37.0-47.0) % Plt Count 362 307 (160-400) X10*3/uL BMP 08/16/24 15:46 Sodium 140 Potassium 3.8 Chloride 109 H Carbon Dioxide 21 L BUN 9 Creatinine 0.57 Calcium 8.6 D Liver Function 08/16/24 Range/Units 15:46 Total Bilirubin 0.4 (0.0-1.0) mg/dL Direct Bilirubin 0.1 (0.0-0.5) mg/dL AST 16 (5-31) U/L ALT 8 (0-31) U/L Alkaline Phosphatase 49 (39-117) U/L Albumin 4.2 (3.5-5.0) g/dL Urine 08/16/24 Range/Units 20:48 Urine Color Yellow Urine Appearance Turbid Urine pH 6.0 (5.0-9.0) Ur Specific [employer] >= 1.030 H (1.005-1.025) Urine Protein Negative (Neg-Trace) mg/dL Urine Glucose (UA) Negative (Negative) mg/dL Assessment and Plan (1) Bleeding external hemorrhoids: Status: Acute Plan 33-year-old female patient presenting with persistently bleeding hemorrhoids found on a recent colonoscopy to have evidence of bleeding hemorrhoids as well. Because of the level of bleeding she is experiencing, I recommended an exam under anesthesia with possible hemorrhoidectomy. After discussion of the procedure, risks, and alternatives currently she consents to the surgery. She will be added onto the operative schedule for today. Quality Stroke Does the patient have a stroke diagnosis?: No VTE Prior VTE?: No VTE Risk Level:: Surgical - low VTE Device Contraindication: N/A - Device Ordered VTE Drug Contraindication: Treatment Not Tolerated Procedures Date of Service Date of Service: 08/17/24
[2024-08-17] MEDS: ceFAZolin Sodium/Dextrose,Iso 2 GM/50 ML PIGGYBACK IV (07:59)
--- NOTE | 2024-08-17 08:37 | P.CONAN_ITS ---
HPI - Anesthesia Eval Consult details Narrative: Bleeding internal hemorrhoids PMFSH Active Problems Active Problems: All Active Problems Acute lower gastrointestinal bleeding (Acute) Anemia (Acute) Family hx of colon cancer (Acute) Bleeding external hemorrhoids (Acute) Cervical lesion (Acute) Abnormal uterine bleeding (Acute) Past Medical History Medical History Anemia Family History Family History Maternal Grandmother Colon cancer Family history of problems with anesthesia: No Surgical History Surgical History H/O cervical polypectomy Hx of dilation and curettage History of Problems with Anesthesia: No Social History Social History Household Members: Spouse and Children Housing: Apartment Are you a primary medical care administrator to a significant other at home: No Do you presently have visiting nurse or other home services: No Alcohol intake: current Alcohol intake frequency: holidays/special occasions only Patient Tobacco Use Status: Never used Tobacco Tobacco use type: Cigarette Cigarettes Per Day: 5 Smoked in Last 30 Days: No Use of substances other than those prescribed or required for medical reasons: No Substance Use Type: Marijuana Advance Directives: No Advance Directives Information Provided: No Nutrition Risks: No Nutritional Risk service: No Current occupational status: unemployed 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 [employer] Sexual orientation: Straight/Heterosexual Gender identity: Female Meds Allergies Allergy/AdvReac Type Severity Reaction Status Date / Time No Known Allergies Allergy Verified 08/16/24 14:48 Active Medications: Current Medications Acetaminophen (Acetaminophen 325 Mg Tablet) 650 mg PO Q6H PRN PRN Reason: Pain, Mild 1-3,fever,headache Calcium Carbonate (Calcium Carbonate 750 Mg Tab.Chew) 750 mg PO Q4H PRN PRN Reason: Heartburn Hydromorphone HCl (Hydromorphone Hcl 0.5 Mg/0.5 Ml Syringe) 0.5 mg IVPUSH Q3H PRN; Protocol PRN Reason: Pain, Severe (Pain Scale 7-10) Dextrose/Lactated Ringer's (D5lr) 1,000 mls @ 125 mls/hr IVCONT .Q8H [facility] Last Admin: 08/17/24 07:59 Dose: 125 mls/hr Magnesium Hydroxide (Milk Of Magnesia 30 Ml Oral.Susp) 30 ml PO DAILY PRN PRN Reason: Constipation Melatonin (Melatonin 3 Mg Tablet) 6 mg PO BEDTIME PRN PRN Reason: Insomnia Ondansetron HCl (Ondansetron Hcl 4 Mg/2 Ml Vial) 4 mg IVPUSH QID PRN PRN Reason: Nausea Oxycodone HCl (Oxycodone Hcl Immed Release 5 Mg Tablet) 5 mg PO Q6H PRN PRN Reason: Pain, Moderate(Pain Scale 4-6) Sodium Chloride (0.9 % Sodium Chloride Flush 3 Ml Syringe) 3 ml IVFLUSH QSHIFT [facility] Last Admin: 08/17/24 08:06 Dose: Not Given Home Medications ?Medication ?Instructions ?Recorded ?Confirmed ?Last Taken ?Type guar gum 1 gram chewable tablet g PO DAILY 06/24/24 Unknown History Exam Height,Weight and Vital Signs: Height 5 ft 1 in Weight 54 kg Last Vital Signs Temp 98.2 F 08/17/24 06:10 Pulse 70 08/17/24 06:10 Resp 16 08/17/24 06:10 BP 122/87 08/17/24 06:10 Pulse Ox 98 08/17/24 06:10 O2 Del Method Room Air 08/17/24 06:10 Pertinent Lab Results Pertinent Lab Results: Laboratory Tests 08/16/24 08/16/24 08/16/24 15:46 20:23 20:48 WBC 6.7 RBC 3.99 L Hgb 8.3 L 8.1 L Hct 27.9 L 26.9 L MCV 69.9 L MCH 20.8 L MCHC 29.7 L RDW 17.8 H Plt Count 362 MPV 9.2 L Immature Gran % (Auto) 0.3 Neut % (Auto) 67.1 Lymph % (Auto) 21.4 [place]gle % (Auto) 9.5 Eos % (Auto) 1.0 Baso % (Auto) 0.7 Lymph # (Auto) 1.4 Ogle # (Auto) 0.6 Eos # (Auto) 0.1 Baso # (Auto) 0.1 Abs Immat Gran (auto) 0.02 Absolute Neuts (auto) 4.5 Absolute Nucleated RBC 0.000 Nucleated RBC % (auto) 0.0 PT 12.3 INR 1.1 Sodium 140 Potassium 3.8 Chloride 109 H Carbon Dioxide 21 L Anion Gap 14 BUN 9 Creatinine 0.57 Estim Creat Clear Calc 104.9 Estimated GFR > 60 Random Glucose 87 Calcium 8.6 D Magnesium 1.7 Total Bilirubin 0.4 Direct Bilirubin 0.1 AST 16 ALT 8 Alkaline Phosphatase 49 Total Protein 6.9 Albumin 4.2 Lipase 17 Beta HCG, Quant < 2 Urine Color Yellow Urine Appearance Turbid Urine pH 6.0 Ur Specific [place] >= 1.030 H Urine Protein Negative Urine Glucose (UA) Negative Urine Ketones Negative Urine Blood Trace Urine Nitrite Negative Ur Leukocyte Esterase Negative Urine RBC 0-2 Urine WBC 0-5 Ur Squamous Epith Cells 11-20 Other Crystals Present Urine Bacteria Trace Hyaline Casts 3-5 Blood Type Antibody Screen 08/16/24 08/17/24 23:43 06:17 WBC 4.2 L RBC 3.75 L Hgb 7.6 L Hct 26.6 L MCV 70.9 L MCH 20.3 L MCHC 28.6 L RDW 17.4 H Plt Count 307 MPV 9.7 Immature Gran % (Auto) 0.2 Neut % (Auto) 52.2 Lymph % (Auto) 33.0 Ogle % (Auto) 11.5 H Eos % (Auto) 2.4 Baso % (Auto) 0.7 Lymph # (Auto) 1.4 Ogle # (Auto) 0.5 Eos # (Auto) 0.1 Baso # (Auto) 0.0 Abs Immat Gran (auto) 0.01 Absolute Neuts (auto) 2.2 Absolute Nucleated RBC 0.000 Nucleated RBC % (auto) 0.0 PT INR Sodium Potassium Chloride Carbon Dioxide Anion Gap BUN Creatinine Estim Creat Clear Calc Estimated GFR Random Glucose Calcium Magnesium Total Bilirubin Direct Bilirubin AST ALT Alkaline Phosphatase Total Protein Albumin Lipase Beta HCG, Quant Urine Color Urine Appearance Urine pH Ur Specific [place] Urine Protein Urine Glucose (UA) Urine Ketones Urine Blood Urine Nitrite Ur Leukocyte Esterase Urine RBC Urine WBC Ur Squamous Epith Cells Other Crystals Urine Bacteria Hyaline Casts Blood Type A Positive Antibody Screen NEGATIVE Airway Mallampati Class: I TM Dist: >3cm Neck ROM: Full Loose/Missing/Broken Teeth: No Heart: RRR Lungs: CTAB Assessment and Plan Assessment Anesthesia Assessment: Anesthesia Plan Discussed Final Anesthetic Review Family History of Problems with Anesthesia: No History of Problems with Anesthesia: No NPO: Yes ASA Class: II and Emergency Final Preanesthetic Review: No Changes in Pt Med Stat, Meds/Allgs Chart Reviewed, Consent Obtained/Reviewed and Anes Risks/Benef Reviewed Patient Risk: Low Procedure Risk: Low Anesthetic Plan Anesthetic Plan: GA Disposition: Standard PACU
[2024-08-17] MEDS: Acetaminophen 1,000 MG/100 ML PIGGYBACK 400 MG IV (09:52)
--- NOTE | 2024-08-17 09:53 | PHA.MEDREC ---
Addendum entered by Baldomero Magdaleno RPh 08/17/24 11:15: MED REC WAS REVIEWED BY [facility]. Original Note: Pharmacy Consult ? Medication Reconciliation Pharmacy has completed the medication reconciliation. Spoke with patient to confirm. She takes iron and vitamin c once at bedtime. She has not taken anything since her colonoscopy on Sunday.
--- NOTE | 2024-08-17 10:00 | P.OP_ITS ---
Operative Note Operative Note Date of Service: 08/17/24 Narrative: Preoperative diagnosis: Bleeding internal hemorrhoids Postoperative diagnosis: Same Procedure: Hemorrhoidectomy Surgeon: Elton Vasquez MD [employer] Consultant: None Anesthesia: General LMA Indications for procedure: 33-year-old female patient presenting with persistent bleeding from internal hemorrhoids. The hemorrhoids were confirmed on a recent colonoscopy on 08/12/2024. The patient's blood count has been droppi ng as a result of the heavy bleeding. She presents now for an emergency hemorrhoidectomy Operative findings: Bleeding hemorrhoids in both the 06:00 and 11 o'clock position when in the lithotomy position. Specimen: Hemorrhoidectomy x2 Estimated blood loss: 20 mL Complications: None Procedure details: Patient was brought to the OR and placed in a supine position. After administering general anesthesia the patient was placed in a lithotomy position. The patient received preoperative antibiotics and Venodyne boots were in place. The operative consent was confirmed. The patient's per ianal skin was prepped with Betadine and draped in a sterile fashion. Digital rectal examination was performed and no palpable mass identified. Anoscopic examination was then performed and 2 areas of hemorrhoidal swelling were identified both of the 11:00 and the 06:00 locations. Both areas revealed areas of bleeding. Beginning at the 06:00 location the triangle clamp was applied onto the bleeding hemorrhoid. This was then completely grasped using a Mariana clamp. A 3-0 chromic suture was then used in a baseball type stitch below the clamp going from proximal to distal. The hemorrhoid was then excised and a running locked chromic suture used to maintain hemostasis. This was then tied proximally. Good hemostasis was noted at this time. Attention was then directed to the 11:00 hemorrhoid which again was grasped with a triangle clamp and then Mariana clamp. The baseball stitch was placed below the clamp. Hemorrhoids were then excised and a running locked 3-0 chromic suture used for hemostasis. Both hemorrhoids were sent to pathology for further examination. Pressure was held to assure hemostasis both locations. Wounds were then irrigated with saline solution and suctioned dry. Good hemostasis was noted. Surgicel was applied to both hemorrhoids followed by Xeroform and 4 x 4 gauze as a anal packing. This was covered with an ABD pad. The patient tolerated the procedure well. Sponge, instrument, and needle counts reported as correct. The patient was transferred to PACU in stable condition.
[2024-08-17] MEDS: Calcium Carbonate 750 MG TAB.CHEW PO (12:13)
[2024-08-17] MEDS: oxyCODONE HCl Immed Release 5 MG TABLET PO ×2 (12:13→21:18)
[2024-08-17] MEDS: HYDROmorphone HCl 0.5 MG/0.5 ML SYRINGE IVPUSH ×4 (14:10→23:25)
--- NOTE | 2024-08-17 16:16 | MHC.CM.PN ---
PT REPORTS SHE LIVES WITH HER S/O AND KIDS SHE IS INDEPENDENT WITH CARE AND HAS NO DME SHE DECLINES COMPLETING A HCP SHE DOES NOT HAVE A PCP, SHE SAYS SHE WAS HOPING TO GET AN APPT WITH [facility] [address] RADHA ADRIAN TO DETERMINE IF THEY CAN ACCEPT PT DCP: HOME NO SERVICES CAR IS IN LOT, SHE WILL CALL SOMEONE IF SHE IS NOT FEELING WELL ENOUGH TO DRIVE HOME
[2024-08-17] MEDS: Ferrous Sulfate 300 MG/5 ML LIQUID PO (16:55)
[2024-08-18] VITALS (10 sets, daily range): BP systolic 110–145; BP diastolic 65–96; PULSE 69–102; RESP 14–18; TEMP 36.1–36.9; O2SAT 96–100
[2024-08-18] MEDS: oxyCODONE HCl Immed Release 5 MG TABLET PO (03:20)
[2024-08-18] MEDS: HYDROmorphone HCl 0.5 MG/0.5 ML SYRINGE IVPUSH ×5 (04:24→23:18)
[2024-08-18 06:03] LABS: Hemoglobin 7.6 g/dl (12.0-16.0); Mean Corpuscular HGB Conc 29.2 g/dl (31.0-35.0); Mean Corpuscular Hemoglobin 20.9 pg (27.0-33.0); Mean Corpuscular Volume 71.6 fL (80.0-98.0); Mean Platelet Volume 9.7 fL (9.4-12.3); Platelet Count 297 X10*3/uL (160-400); Red Blood Count 3.63 X10*6/uL (4.20-5.50); Red Cell Distribution Width 17.5 % (11.0-16.0); White Blood Count 6.5 X10*3/uL (4.8-10.8)
--- NOTE | 2024-08-18 07:23 | P.PNGS_ITS ---
Subjective Subjective Date of Service: 08/18/24 Interval history: Had difficulty with pain overnight. Dilaudid wearing off quickly and oxycodone not helping. Anal packing fell out last night. Has been OOB and ambulating. No bleeding overnight. Physical Exam 2 Vital Signs: Vital Signs: Last Vital Signs Temp 97.0 F 08/18/24 04:00 Pulse 86 08/18/24 04:00 Resp 17 08/18/24 04:00 BP 145/96 H 08/18/24 04:00 Pulse Ox 98 08/18/24 04:00 O2 Del Method Room Air 08/18/24 04:00 O2 Flow Rate 6 08/17/24 09:45 BMI result Body Mass Index 23.3 Const: Other: uncomfortable appearing General: no acute distress and alert Orientation/consciousness: patient oriented x3 Resp: Effort & Inspection: normal respiratory effort GI: Other: external rectal exam- no bleeding noted Neuro: General: patient oriented x3 and moves all extremities Objective Data Active Medications Calcium Carbonate (Calcium Carbonate 750 Mg Tab.Chew) 750 mg PO Q4H PRN PRN Reason: Heartburn Last Admin: 08/17/24 12:13 Dose: 750 mg Documented By: WESLY Docusate Sodium (Docusate Sodium 100 Mg Capsule) 100 mg PO BID [facility] Ferrous Sulfate (Ferrous Sulfate 300 Mg/5 Ml Liquid) 300 mg PO BIDWM [facility] Last Admin: 08/17/24 16:55 Dose: 300 mg Documented By: WESLY Hydromorphone HCl (Hydromorphone Hcl 0.5 Mg/0.5 Ml Syringe) 0.5 mg IVPUSH Q3H PRN; Protocol PRN Reason: Pain, Severe (Pain Scale 7-10) Last Admin: 08/18/24 04:24 Dose: 0.5 mg Documented By: FUAD Dextrose/Lactated Ringer's (D5lr) 1,000 mls @ 125 mls/hr IVCONT .Q8H [facility] Last Admin: 08/17/24 20:13 Dose: 125 mls/hr Documented By: FUAD Magnesium Hydroxide (Milk Of Magnesia 30 Ml Oral.Susp) 30 ml PO DAILY PRN PRN Reason: Constipation Melatonin (Melatonin 3 Mg Tablet) 6 mg PO BEDTIME PRN PRN Reason: Insomnia Ondansetron HCl (Ondansetron Hcl 4 Mg/2 Ml Vial) 4 mg IVPUSH QID PRN PRN Reason: Nausea Oxycodone HCl (Oxycodone Hcl Immed Release 5 Mg Tablet) 5 mg PO Q6H PRN PRN Reason: Pain, Moderate(Pain Scale 4-6) Last Admin: 08/18/24 03:20 Dose: 5 mg Documented By: FUAD Sodium Chloride (0.9 % Sodium Chloride Flush 3 Ml Syringe) 3 ml IVFLUSH QSGAFT [facility] Last Admin: 08/17/24 23:26 Dose: 3 ml Documented By: FUAD Labs 08/18/24 05:28 08/16/24 15:46 Labs: Laboratory Results - last 24 hr 08/18/24 05:28 MCV 71.6 L MCH 20.9 L MCHC 29.2 L RDW 17.5 H Plt Count 297 MPV 9.7 Absolute Nucleated RBC 0.000 Nucleated RBC % (auto) 0.0 Procedures Date of Service Date of Service: 08/18/24 Progress Note: A&P Assessment and plan (1) S/P hemorrhoidectomy: Status: Acute Plan POD #1 s/p hemorrhoidectomy for bleeding internal hemorrhoids. C/o difficulty with pain. VSS. No bleeding noted on external rectal exam. Will adjust analgesics. Bowel regimen added. On oral iron therapy. Home when pain controlled. Sitz baths TID. Patient comfortable with plan. Time Spent With Patient Time: Total time managing care of this patient today ____ minutes. Quality Stroke Does the patient have a stroke diagnosis?: No VTE Prior VTE?: No VTE Risk Level:: Surgical - low VTE Device Contraindication: N/A - Device Ordered VTE Drug Contraindication: Treatment Not Tolerated
[2024-08-18] MEDS: Acetaminophen 1,000 MG/100 ML PIGGYBACK 400 MG IV ×3 (07:40→19:55)
--- NOTE | 2024-08-18 09:26 | HO.POSTANES ---
Post Anesthesia Evaluation Post Anesthesia Evaluation Date of Service: 08/18/24 Vital Signs: Vital Signs Temp Pulse Resp BP Pulse Ox O2 Del Method 08/18/24 07:40 98.5 F 74 16 131/95 H 100 Room Air 08/18/24 07:37 102 H 14 145/84 H 98 Room Air 08/18/24 04:00 97.0 F 86 17 145/96 H 98 Room Air 08/18/24 00:00 97.9 F 90 16 115/75 96 Room Air Anesthesia: General Mental Status: Awake Pain Control: Satisfactory Nausea/Vomiting: None Hydration: Adequate Anesthesia-Related Issues: No Anes. Related Issues
[2024-08-18] MEDS: oxyCODONE HCl Immed Release 5 MG TABLET 10 MG PO ×3 (09:51→21:12)
[2024-08-18] MEDS: polyethylene glycoL 3350 17 GM POWD.PACK PO (09:51)
[2024-08-18] MEDS: Ferrous Sulfate 300 MG/5 ML LIQUID PO ×2 (09:52→16:58)
[2024-08-18] MEDS: Docusate Sodium 100 MG CAPSULE PO ×2 (09:52→20:06)
[2024-08-18] MEDS: 0.9 % Sodium Chloride Flush 3 ML SYRINGE IVFLUSH ×3 (09:53→23:20)
--- NOTE | 2024-08-18 10:32 | MHC.CM.PN ---
Patient not medically cleared. CM will continue to follow.
--- NOTE | 2024-08-18 14:06 | MHC.CLN ---
NUTRITION CONSULT REVIEW OF WEIGHT HX SHOWS WEIGHT ESSENTIALLY STABLE X 10 MONTHS WITH NO SIGNIFICANT WEIGHT CHANGE. DIET=REGULAR. NO ADDITIONAL NUTRITION INTERVENTIONS AT THIS TIME.
[2024-08-18] MEDS: Calcium Carbonate 750 MG TAB.CHEW PO (20:06)
[2024-08-18] MEDS: Milk of Magnesia 30 ML ORAL.SUSP PO (23:35)
[2024-08-19] MEDS: Acetaminophen 1,000 MG/100 ML PIGGYBACK 400 MG IV (01:11)
[2024-08-19] MEDS: oxyCODONE HCl Immed Release 5 MG TABLET 10 MG PO ×2 (01:19→05:45)
[2024-08-19 03:04] VITALS: BP 113/60; PULSE 75; RESP 18; TEMP 36.6; O2SAT 98
[2024-08-19] MEDS: HYDROmorphone HCl 0.5 MG/0.5 ML SYRINGE IVPUSH (03:05)
--- NOTE | 2024-08-19 07:50 | P.PNGS_ITS ---
Subjective Subjective Date of Service: 08/19/24 Interval history: Feels better, pain is well controlled. Had a few bowel movements overnight. Scant blood with wiping otherwise no further BRBPR. Did sitz baths yesterday. OOB and ambulating without difficulty. Wants to go home. Physical Exam 2 Vital Signs: Vital Signs: Last Vital Signs Temp 97.9 F 08/19/24 03:04 Pulse 75 08/19/24 03:04 Resp 18 08/19/24 03:04 BP 113/60 08/19/24 03:04 Pulse Ox 98 08/19/24 03:04 O2 Del Method Room Air 08/19/24 03:04 O2 Flow Rate 6 08/17/24 09:45 BMI result Body Mass Index 23.3 Const: General: comfortable, no acute distress and alert O rientation/consciousness: patient oriented x3 Resp: Effort & Inspection: normal respiratory effort GI: Other: no blood externally on rectal exam, no erythema or edema Skin: General skin exam: no rashes or lesions noted Neuro: General: patient oriented x3 and moves all extremities Objective Data Active Medications Calcium Carbonate (Calcium Carbonate 750 Mg Tab.Chew) 750 mg PO Q4H PRN PRN Reason: Heartburn Last Admin: 08/18/24 20:06 Dose: 750 mg Documented By: LAUREN Docusate Sodium (Docusate Sodium 100 Mg Capsule) 100 mg PO BID [facility] Last Admin: 08/18/24 20:06 Dose: 100 mg Documented By: LAUREN Ferrous Sulfate (Ferrous Sulfate 300 Mg/5 Ml Liquid) 300 mg PO BIDWM [facility] Last Admin: 08/18/24 16:58 Dose: 300 mg Documented By: COLBURK Hydromorphone HCl (Hydromorphone Hcl 0.5 Mg/0.5 Ml Syringe) 0.5 mg IVPUSH Q3H PRN; Protocol PRN Reason: Pain, Severe (Pain Scale 7-10) Last Admin: 08/19/24 03:05 Dose: 0.5 mg Documented By: LAUREN Acetaminophen (Ofirmev) 1,000 mg in 100 mls @ 400 mls/hr IV Q6H [facility] Last Infusion: 08/19/24 01:26 Dose: Infused Documented By: LAUREN Magnesium Hydroxide (Milk Of Magnesia 30 Ml Oral.Susp) 30 ml PO DAILY PRN PRN Reason: Constipation Last Admin: 08/18/24 23:35 Dose: 30 ml Documented By: LAUREN Melatonin (Melatonin 3 Mg Tablet) 6 mg PO BEDTIME PRN PRN Reason: Insomnia Ondansetron HCl (Ondansetron Hcl 4 Mg/2 Ml Vial) 4 mg IVPUSH QID PRN PRN Reason: Nausea Oxycodone HCl (Oxycodone Hcl Immed Release 5 Mg Tablet) 10 mg PO Q4H PRN PRN Reason: Pain, Moderate(Pain Scale 4-6) Last Admin: 08/19/24 05:45 Dose: 10 mg Documented By: MATHEW Polyethylene Glycol (Polyethylene Glycol 3350 17 Gm Powd.Pack) 17 gm PO DAILY [facility] Last Admin: 08/18/24 09:51 Dose: 17 gm Documented By: COLBURK Sodium Chloride (0.9 % Sodium Chloride Flush 3 Ml Syringe) 3 ml IVFLUSH QSHIFT [facility] Last Admin: 08/18/24 23:20 Dose: 3 ml Documented By: LAUREN Labs 08/18/24 05:28 08/16/24 15:46 Procedures Date of Service Date of Service: 08/19/24 Progress Note: A&P Assessment and plan (1) S/P hemorrhoidectomy: Status: Acute Plan POD #2 s/p hemorrhoidectomy for bleeding internal hemorrhoids. Pain improved. VSS. No bleeding noted on external rectal exam. Stable for dc to home today. Continue bowel regimen, iron therapy. Sitz baths TID and after BMs. F/u in office in 1 week. Patient comfortable with plan. Time Spent With Patient Time: Total time managing care of this patient today ____ minutes. Quality Stroke Does the patient have a stroke diagnosis?: No VTE Prior VTE?: No VTE Risk Level:: Surgical - low VTE Device Contraindication: N/A - Device Ordered VTE Drug Contraindication: Treatment Not Tolerated
[2024-08-19 07:53] VITALS: BP 118/74; PULSE 93; RESP 18; TEMP 36.3; O2SAT 100
[2024-08-19] MEDS: polyethylene glycoL 3350 17 GM POWD.PACK PO (07:58)
[2024-08-19] MEDS: Docusate Sodium 100 MG CAPSULE PO (07:58)
[2024-08-19] MEDS: Ferrous Sulfate 300 MG/5 ML LIQUID PO (07:59)
[2024-08-19] MEDS: 0.9 % Sodium Chloride Flush 3 ML SYRINGE IVFLUSH (07:59)
--- NOTE | 2024-08-19 08:36 | MHC.CM.PN ---
Patient medically cleared for dc home self care, self transport
--- NOTE | 2024-08-19 10:14 | P.DS_ITS ---
DS: Providers Provider Date of Service: 08/19/24 Date of admission: 08/16/24 23:32 Date of discharge: 08/19/24 Primary care physician: None Physician DS: Diagnosis Discharge Diagnosis (1) S/P hemorrhoidectomy: Status: Acute DS: Summary Hospital Course Hospital Course: HPI AT ADMISSION: Vicky Arizmendi is a 33 year old female presenting with complaints of bleeding per rectum. She reports the bleeding occurs every time she has a bowel movement. There is pain associated with every bowel movement as well. She underwent a colonoscopy and upper endoscopy performed by Dr. Millard on 08/12/2024. This was significant only for evidence of bleeding hemorrhoids. Since the colonoscopy she has had more intense bleeding especially after having a bowel movement. She reports having issue with bleeding once before and previously underwent polypectomy for bleeding. She reports needing a transfusion in the past as well. This morning she denies any pain or bleeding and has not had a bowel movement while in the emergency department. Workup in the emergency department has noted a drift downward for hemoglobin and hematocrit from 9.2 on 06/17/2024 to 7.6 this morning. HOSPITAL COURSE: She was admitted to the surgical service for further treatment of the bleeding hemorrhoids. Given the level of bleeding she is experiencing, it was recommended to proceed with exam under anesthesia with possible hemorrhoidectomy. She was added onto the operative schedule for that day. On 08/17/24, a hemorrhoidectomy was performed by Dr. Vasquez without complication. She was found to have bleeding hemorrhoids in both the 06:00 and 11 o'clock position when in the lithotomy position. She tolerated the procedure well. She remained inpatient for 2 days for pain control. She had no further rectal bleeding. H/H remained stable. On the day of discharge, she was tolerating a solid diet. She was moving her bowels. Her pain was well controlled. She was ambulating without difficulty. She was doing sitz baths TID. She was discharged on 08/19/24 in stable condition. She is to follow up in the office in 1 week. She was discharged on a bowel regimen and instructed to do sitz baths TID and after bowel movements. She was continued on her oral iron therapy. Status at Discharge Functional status at discharge: independent ambulation Overall status at discharge: patient is progressing back to baseline Time Attestation Discharge Coordination Time (in mins): 35 Quality: Safe Use of Opioids Does Pt have an Active Cancer Diagnosis on the Problem List?: No Quality: Stroke Does the patient have a stroke diagnosis?: No Physical Exam Vital Signs: Vital Signs: Last Vital Signs Temp 97.3 F 08/19/24 07:53 Pulse 93 08/19/24 07:53 Resp 18 08/19/24 07:53 BP 118/74 08/19/24 07:53 Pulse Ox 100 08/19/24 07:53 O2 Del Method Room Air 08/19/24 07:53 O2 Flow Rate 6 08/17/24 09:45 BMI result Body Mass Index 23.3 Const: General: comfortable, no acute distress and alert Orientation/consciousness: patient oriented x3 GI: Other: no blood noted on external rectal exam Skin: General skin exam: no rashes or lesions noted Neuro: General: patient oriented x3 and moves all extremities DS: Data Data Completed and Pending Completed studies during hospitalization [Text1]: 08/17/24 09:22 Surgical [PTH] Routine Hemorrhoids, excision: Hemorrhoids; negative for atypia/malignancy Discharge Plan Discharge Anticipated Discharge Date/Time: 08/19/24 10:22 Patient Disposition: Home, Self-Care Discharge Diagnosis: bleeding internal hemorrhoids s/p hemorrhoidectomy Referrals: Elton Vasquez MD [Physician] - 1 Week Physician,None [Primary Care Provider] - 1 Week Discharge Medications: New oxycodone 5 mg tablet 5 mg PO Q4H PRN (Reason: pain (scale score 7-10)) Qty: 30 0RF Rx Instructions: Partial Fill upon patient request. docusate sodium [Colace] 100 mg capsule 100 mg PO BID Qty: 30 0RF polyethylene glycol 3350 [Miralax] 17 gram/dose powder 17 g PO DAILY Qty: 238 0RF ferrous sulfate 325 mg (65 mg iron) tablet 325 mg PO BID Qty: 30 0RF Continued ascorbic acid (vitamin C) [Vitamin C] 500 mg tablet 500 mg PO BEDTIME Fiber Gummies 1.7 gram Tablet,Chewable 1.7 g PO DAILY Discontinued ferrous sulfate 325 mg (65 mg iron) tablet 325 mg PO BEDTIME bisacodyl [Dulcolax (bisacodyl)] 5 mg tablet,delayed release (DR/EC) 10 mg PO BEDTIME Qty: 180 4RF Discharge Orders: Discharge Order (Routine); Ordered 08/19/24 Ordered By: Madonna Royal Diet: Advance to usual diet Activity on Discharge: As tolerated Stand Alone Forms: Patient Portal Discharge page Print Language: Bangladeshi Activity Restrictions/Additional Instructions: Hot sitz baths three times a day and after bowel movements. Follow up in the office with Dr. Vasquez in a week. ([phone]) Follow up with your PCP regarding your anemia and iron therapy. Call Your Doctor Or Return to ED If: ? ? -Your temperature exceeds 101.5? F? ? ? -You experience excessive pain or swelling ? ? -You have an unexpected reaction to medication ? ? -You experience continued vomiting/nausea Care Plan Goals: Return to baseline health and resume normal activities following recovery period. Pain resolution. Health Concerns: bleeding internal hemorrhoids anemia Plan of Treatment: s/p hemorrhoidectomy iron therapy bowel regimen sitz baths f/u in office in 1 week Assessment: Improved Discharge Date/Time: 08/19/24 08:57
== END 2024-08-19 08:57 | disposition home or self-care (01) | DRG 226 ==
LOC: HO.ED 20:13 → HO.EDOVER 08-17 00:04 → HO.S3 08-17 07:50 → HO.SSSA 08-17 07:57 → HO.S3 08-17 10:04
PROVIDERS: Physician Assistant; Physician Assistant Medical; Admitting Provider Surgery; Emergency Provider Emergency Medicine; Visit Provider Surgery
PROC: 06BY0ZC Excision of Hemorrhoidal Plexus, Open Approach (ICD-10-PCS; CPT 46260; principal; 2024-08-17 08:30)
DX: K64.8 Other hemorrhoids (principal); Z79.899 Other long term (current) drug therapy
CPT/HCPCS: 46260; 36415; 71046; 74178; 80048; 80076; 81001; 83690; 83735; 84702; 85014; 85018; 85025; 85027; 85610; 86850; 86900; 86901; 88304; 99221; 99285; J0131; J1171; J2003; J2270; J2704; J3010; Q9967

== ENCOUNTER → 2024-08-16 14:48 | Outpatient (BNV) | payer OTHER, SELFPAY | PROVIDERS: Visit Provider Nuclear Medicine | DX: K76.89 Other specified diseases of liver (principal); R09.89 Other specified symptoms and signs involving the circulatory and respiratory systems | CPT/HCPCS: 71046; 74178 ==

== ENCOUNTER → 2024-08-16 23:32 | Outpatient (BNV) | payer OTHER, SELFPAY | PROVIDERS: Admitting Provider Surgery; Emergency Provider Emergency Medicine; Visit Provider Surgery | DX: K64.4 Residual hemorrhoidal skin tags (principal) | CPT/HCPCS: 46260; 99222 ==

== ENCOUNTER 2024-08-28 15:10 | Outpatient (AMB) | payer OTHER, SELFPAY ==
--- OUTSIDE RECORDS SUMMARY | 2022-10-27 08:25 | XMS_ITS | Continuity of Care Document ---
Author Organization [facility] Address [address] [place] [address] Phone Care Team Providers Care Cuff Slitter Name Role Phone Bethany Ann DO Unavailable Unavailable Procedures Procedure Date [facility]ITIAL HOSPITAL CARE Advance Directives Directive Yes / No Effective Date File Name No Information Encounters Encounter Description Practice Location Reason(s) For Visit Diagnoses Date Provider Providers Copied on Encounter [facility], [address], [place], [id number], [place] tel:[phone] No Information Seth Sims. [address] [place], [address], [place]. tel: [phone] [facility], [address], [place], [id number], [place] tel:[phone] [facility] IP No Information Staci Alvarez. [address] [place], [place], [id number]. tel: [phone] Referring Provider: Antonio Melvin [address] [place], [address]. tel: [phone] Family History Family Member Type Diagnosis Age At Onset No Information Payers Payer name Insurance type Covered libertarian [place] Authoriza tion(s) No Information Social History Type Description Quantity Date Captured Comments Sex Female Smoking Status No Information Chief Complaint And Reason For Visit No Information Reason For Referral Reason For Referral No Information History Of Present Illness Encounter Date Complaint History Of Prese nt Illness No Information Functional Status Date Functional Assessmen t No Information Instructions Date Instruction Additional Infor mation No Information Assessments Type Assessment Date No Information Patient Care Teams Name Effective Dates (start - stop) Status Members No Information
--- NOTE | 2024-08-28 15:16 | A.OFFVIS_ITS ---
Vital Signs 08/28/24 15:29 Height 5 ft 1 in Weight 116 lb BMI 21.9 BP 124/90 H Blood Pressure Location Lt brachial Position Sitting Pulse 96 Intake Visit Reasons: s/p hemorrhoidectomy Intake Note: Patient is seen in office for post op assessment post hemorrhoidectomy. Pt c/o: admits to minimal to none blood with bm, denies any pain surgery:08/17/24 [employer] Glass Technician Required: No Social Media Coordinator: Social Media Coordinator Present Accompanied by: Self / Same As Patient Allergies No Known Allergies Allergy (Verified 08/28/24 15:30) HPI Comments Details: 33-year-old female patient presenting with complaints of severe bleeding hemorrhoids which required blood transfusions admitted on 08/16/2024 due to the se julia bleeding and subsequently underwent hemorrhoidectomy on 08/17/2024. She was subsequently discharged home on 08/19/2024. Since her discharge she denies any ongoing rectal pain and very minimal bleeding. Bowels have been regular and she continues to use fiber and Colace. She feels much improved. [facility] Medical History Anemia Surgical History Hx of hemorrhoidectomy (08/17/24) H/O cervical polypectomy Hx of dilation and curettage Family History Maternal Grandmother Colon cancer Social History Household Members: Significant Other and Children Housing: Apartment Are you a primary interior plant caretaker to a significant other at home: No Do you presently have visiting nurse or other home services: No Alcohol intake: current Alcohol intake frequency: holidays/special occasions only Patient Tobacco Use Status: Never used Tobacco Tobacco use type: Cigarette Cigarettes Per Day: 5 Substance Use Type: Marijuana service: No Current occupational status: unemployed 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 Neuro General: patient oriented x3 Assessment & Plan Assessment & Plan (1) Acute blood loss anemia: Code(s): D62 - Acute posthemorrhagic anemia Category: Medical (2) Bleeding external hemorrhoids: Code(s): K64.4 - Residual hemorrhoidal skin tags Category: Medical (3) S/P hemorrhoidectomy: Code(s): Z98.890 - Other specified postprocedural states; Z87.19 - Personal history of other diseases of the digestive system Category: Surgical Plan 33-year-old female patient status post emergency hemorrhoidectomy for bleeding hemorrhoids. She tolerated the procedure well and her wounds are healing nicely. She feels much improved with no further bleeding per rectum as before. She should continue her stool softener and fiber therapy and follow up as needed. Coding Level of Care Code Global (15014) Diagnoses Acute blood loss anemia D62 Bleeding external hemorrhoids K64.4 S/P hemorrhoidectomy Z98.890; Z87.19
[2024-08-28 15:29] VITALS: BP 124/90; PULSE 96; BMI 21.9
== END 2024-08-28 15:36 | disposition home or self-care (01) ==
PROVIDERS: Visit Provider Surgery
DX: D62 Acute posthemorrhagic anemia (principal); K64.4 Residual hemorrhoidal skin tags; Z98.890 Other specified postprocedural states; Z87.19 Personal history of other diseases of the digestive system
CPT/HCPCS: 99024

== ENCOUNTER → 2024-08-28 15:10 | Outpatient (BNVA) | payer OTHER, SELFPAY | PROVIDERS: Visit Provider Surgery | DX: D62 Acute posthemorrhagic anemia (principal); K64.4 Residual hemorrhoidal skin tags; Z98.890 Other specified postprocedural states; Z87.19 Personal history of other diseases of the digestive system | CPT/HCPCS: 99212 ==

== ENCOUNTER 2024-09-09 16:09 | Outpatient (AMB) | payer OTHER, SELFPAY ==
--- OUTSIDE RECORDS SUMMARY | 2022-10-27 08:25 | XMS_ITS | Continuity of Care Document ---
Author Organization [facility] Address [address] [place] [address] Phone Care Team Providers Care Medical Billing And Coding Specialist Name Role Phone Bethany Ann DO Unavailable Unavailable Procedures Procedure Date INITIAL HOSPITAL CARE Advance Directives Directive Yes / No Effective Date File Name No Information Encounters Encounter Description Practice Location Reason(s) For Visit Diagnoses Date Provider Providers Copied on Encounter [facility], [address], [place], [id number], [place] tel:[phone] No Information Seth Sims. [address] [place], [address], [place]. tel: [phone] [facility], [address], [place], [id number], [place] tel:[phone] [facility] IP No Information Staci Alvarez. [address] [place], [place], [id number]. tel: [phone] Referring Provider: Antonio Melvin [address] [place], [address]. tel: [phone] Family History Family Member Type Diagnosis Age At Onset No Information Payers Payer name Insurance type Covered republican [place] Authoriza tion(s) No Information Social History [...]
--- NOTE | 2024-09-09 16:12 | A.OFFVIS_ITS ---
Vital Signs 09/09/24 16:19 Height 5 ft 1 in Weight 119 lb BMI 22.5 BP 124/82 Blood Pressure Location Rt brachial Position Sitting Pulse 94 Pulse Source Pulse Oximeter Pulse Oximetry (%) 99 Oxygen Delivery Method Room Air Intake Visit Reasons: Post Admit FUV. Rectal bleeding. URGENT Intake Note: ESTABLISHED PATIENT for hemorrhoid and constipation mgmt. Chief Complaint; C.O. bloating, distention, nausea w/o vomiting, RLQ pain which radiates throughout the lower abdomen. Pt does confirm that her hemorrhoids have resolved since her recent hemorrhoidectomy x3 weeks ago. Subassembler Required: No Accompanied by: Self / Same As Patient Allergies No Known Allergies Allergy (Verified 09/09/24 16:13) HPI HPI Post Admit FUV. Rectal bleeding. URGENT: Details: LAST VISIT: Anemia Family hx of colon cancer Bleeding external hemorrhoids Constipation Plan Patient will start taking Dulcolax and stop senna. Increase fluid intake and activity to promote better bowel motility. Patient may use [id number] stool softeners. She is currently on iron and that is making her more constipated. Increase fluid intake and activity to promote better bowel motility. Increase vegetables in her diet. Follow-up in 3 months. Patient will be sent for upper endoscopy and colonoscopy. Continue avoiding dietary triggers and late night snacking, staying upright for minimum 3 hours after meals discussed with patient. Patient is agreeable to this plan and verbalizes understanding of instructions. She was given the opportunity to ask questions and all questions answered. ? Thank you for allowing me to participate in her care New bisacodyl (Dulcolax (bisacodyl)) 10 mg (2 x 5 mg) PO BEDTIME 180 tabs 4RF Discontinued sennosides Discontinued Reason: Doctor's Order 17.2 mg (2 x 8.6 mg) PO BEDTIME 60 tabs 3RF constipation K59.00 UPPER ENDOSCOPY AND COLONOSCOPY EGD Findings:? * Esophagus:? Normal esophageal mucosa was noted. The Z-line was at 36 cm. * Stomach:? Normal gastric mucosa. Retroflexion was performed in the cardia. Random cold forceps biopsies were taken from the stomach. * Duodenum:? A few polyps were noted in the duodenal bulb. Cold forceps biopsies were taken for histology. Remaining mucosa was normal to the extent examined. Cold forceps biopsies were taken from the duodenal bulb and 2nd portion of the duodenum to rule out celiac sprue. Colonoscopy Procedure:? The patient was then turned for the colonoscopy. A digital rectal exam was performed which was normal.? A distal attachment cap was affixed to the tip of the scope and the colonoscope was then inserted through the anus and advanced through the colon and advanced to the cecum at 75 cm and terminal ileum.? Appendiceal orifice and ileocecal valve were identified. Mucosa was carefully examined under high definition white light as the instrument was slowly withdrawn in a retrograde panoramic fashion. Retroflexion was performed in rectum. The procedure was not difficult. The quality of the prep was BBPS: 3+3+3 = adequate Withdrawal time 7 minutes Limitations: No limitations Findings: Mucosa: Normal colon and terminal ileum mucosa. Protruding lesions: * Large internal hemorrhoids with active bleeding. Impression: 1. Normal esophagus 2. Normal stomach (biopsy) 3. Duodenal bulb polyps (biopsy) 4. Normal duodenal mucosa (biopsy) 5. Normal colon and terminal ileum mucosa 6. Internal hemorrhoids with active oozing Recommendations:?? * Follow-up path results * Start ansuol suppository once daily at night time x 10-12 days * Sitz baths * Increase fiber intake * Avoid constipation and straining * If limited response to medical management, will need surgical referral * Start asymptomatic CRC screening at 44 y.o PATHOLOGY: Addendum Addendum #1 Immunostain for H. pylori on C is positive with appropriate control. Electronically Signed By: Susan Guerra 08/18/24 1300 Diagnosis A. Duodenum, biopsy: Duodenal mucosa with preserved villi and no specific change. B. Duodenum, polyp: Duodenal mucosa with nonspecific/peptic duodenitis and Tere's gland hyperplasia; no dysplasia seen. C. Stomach, random, biopsy: Chronic gastritis with mild activity and superficial bacteria suspicious for H. pylori; negative for intestinal metaplasia and dysplasia. Comment: (C): Immunostain for H. pylori pending; addendum to follow TODAY'S VISIT Patient is here today for follow-up and to discuss upper endoscopy and colonos copy results. Patient had normal colonoscopy with internal hemorrhoids that were actively oozing during the procedure. Upper endoscopy showed H pylori. Patient was bleeding couple days after the procedure and went to ER 4 days after the procedure. Patient was admitted due to low blood count. Severe rectal bleeding caused by internal hemorrhoids. Patient was sent for urgent hemorrhoidectomy done by Dr. Vasquez. Since the procedure patient has been doing well. Is moving her bowels better now that she is taking Colace twice a day and MiraLax daily. Patient states that she occasionally still gets abdominal bloating and discomfort. Epigastric pain still continues. Not treated for H pylori as patient had severe abdominal cramping. Awaiting treatment. Will start her on quadruple therapy today. Patient denies melena, hematochezia. Reports occasional dyspepsia without dysphagia or odynophagia. [facility] Medical History (Updated 09/09/24 @ 20:12 by Lizzie Vaughan [facility]) Helicobacter pylori (H. pylori) Anemia Surgical History Hx of hemorrhoidectomy (08/17/24) H/O cervical polypectomy Hx of dilation and curettage Family History Maternal Grandmother Colon cancer Social History Household Members: Significant Other and Children Housing: Apartment Are you a primary career and technology education teacher to a significant other at home: No Do you presently have visiting nurse or other home services: No Alcohol intake: current Alcohol intake frequency: holidays/special occasions only Patient Tobacco Use Status: Never used Tobacco Tobacco use type: Cigarette Cigarettes Per Day: 5 Substance Use Type: Marijuana service: No Current occupational status: unemployed 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 [employer] Sexual orientation: Straight/Heterosexual Gender identity: Female Female Reproductive History Menstrual Age of Menarche: 8 Review of Systems Const Denies weight gain and Denies weight loss ENT Reports no additional complaints, Denies dysphagia and Denies odynophagia Card Reports no additional complaints Resp Reports no additional complaints GI Reports abdominal pain (Epigastric), Denies belching, Denies melena, Reports bloating, Denies hematochezia, Denies change in bowel habits, Reports constipation, Denies dysphagia, Denies excessive flatus, Denies dyspepsia, Reports heartburn (Occasional), Denies diarrhea, Denies loose stools, Denies nausea, Denies odynophagia and Denies vomiting Reports no additional complaints Musc Reports no additional complaints Neuro Reports no additional complaints Psych Reports no additional complaints Endo Reports no additional complaints Physical Exam Vital Signs: Last Vital Signs Pulse 94 09/09/24 16:19 BP 124/82 09/09/24 16:19 Pulse Ox 99 09/09/24 16:19 Oxygen Delivery Method Room Air 09/09/24 16:19 BMI result Body Mass Index 22.5 Const General: healthy appearing, no acute distress and well developed Nutritional Appearance: well nourished Orientation/consciousness: patient oriented x3 Resp Effort & Inspection: normal respiratory effort, able to speak in complete sentences, no tracheal deviation and symmetric chest movement Auscultation: clear to auscultation bilaterally Cardio Rate: regular rate GI Inspection: Yes normal to inspection and No distended Palpation (GI): Soft to palpation, not firm, nontender and No hepatosplenomegaly present Auscultation: normal bowel sounds General: Yes no CVA tenderness Back/Spine/Pelvis Back: no CVA tenderness Skin General skin exam: elasticity normal, turgor normal and dry skin Neuro General: patient oriented x3 Psych Appearance: grossly normal Mental Status: mental status grossly normal Assessment & Plan Assessment & Plan (1) Acute blood loss anemia: Code(s): D62 - Acute posthemorrhagic anemia Category: Medical (2) Bleeding external hemorrhoids: Code(s): K64.4 - Residual hemorrhoidal skin tags Category: Medical (3) S/P hemorrhoidectomy: Code(s): Z98.890 - Other specified postprocedural states; Z87.19 - Personal history of other diseases of the digestive system Category: Surgical (4) Anemia: Code(s): D64.9 - Anemia, unspecified Category: Medical Qualifiers: Anemia type: iron deficiency Iron deficiency anemia type: chronic blood loss Qualified Code(s): D50.0 - Iron deficiency anemia secondary to blood loss (chronic) (5) Family hx of colon cancer: Code(s): Z80.0 - Family history of malignant neoplasm of digestive organs Category: Medical (6) Helicobacter pylori (H. pylori): Code(s): A04.8 - Other specified bacterial intestinal infections Category: Medical (7) Constipation: Code(s): K59.00 - Constipation, unspecified Qualifiers: Constipation type: slow transit constipation Qualified Code(s): K59.01 - Slow transit constipation (8) GERD (gastroesophageal reflux disease): Code(s): K21.9 - Gastro-esophageal reflux disease without esophagitis Qualifiers: Esophagitis presence: without esophagitis Qualified Code(s): K21.9 - Gastro-esophageal reflux disease without esophagitis (9) Abdominal pain: Code(s): R10.9 - Unspecified abdominal pain Qualifiers: Abdominal location: generalized Qualified Code(s): R10.84 - Generalized abdominal pain Plan We will repeat CBC is today. Patient denies any melena, hematochezia. Will treat H pylori with quadruple therapy. Patient will return in 2 months and we will retest. For now patient will avoid dietary triggers and late night snacking. Continue taking MiraLax and Dulcolax daily. She will call our office if she will have any GI concerning symptoms. She is agreeable to this plan and verbalizes understanding of instructions. She was given the opportunity to ask questions and all questions answered. Thank you for allowing me to participate in her care Orders: Orders Complete Blood Count no Diff Today K21.9 - Gastro-esophageal reflux disease without esophagitis Medications: New bismuth subsalicylate 2 tabs PO QID 112 tabs 0RF 14 days A04.8 - Other specified bacterial intestinal infections metronidazole 1,000 mg (2 x 500 mg) PO BID 56 tabs 0RF A04.8 - Other specified bacterial intestinal infections omeprazole 20 mg PO BID 28 caps 0RF 14 days A04.8 - Other specified bacterial intestinal infections, K21.9 - Gastro-esophageal reflux disease without esophagitis doxycycline hyclate 100 mg PO BID 28 caps 0RF 14 days ondansetron 4 mg PO Q8H PRN 20 tabs 0RF nausea and vomiting R11.0 - Nausea Coding Level of Care Code Est Pt Level 4 (12341) Complex EM visit Add On G2211 Diagnoses Acute blood loss anemia D62 Bleeding external hemorrhoids K64.4 S/P hemorrhoidectomy Z98.890; Z87.19 Iron deficiency anemia due to chronic blood loss D50.0 Anemia type: iron deficiency Iron deficiency anemia type: chronic blood loss Family hx of colon cancer Z80.0 Helicobacter pylori (H. pylori) A04.8 Slow transit constipation K59.01 Constipation type: slow transit constipation Gastroesophageal reflux disease without esophagitis K21.9 Esophagitis presence: without esophagitis Generalized abdominal pain R10.84 Abdominal location: generalized Time Spent (min) 45 Comment 25 minutes spent with patient and additional 20 minutes spent reviewing her records
[2024-09-09 16:19] VITALS: BP 124/82; PULSE 94; O2SAT 99; BMI 22.5
--- OUTSIDE RECORDS SUMMARY | 2024-09-09 16:26 | XMS_ITS ---
Author Name [facility] Organization Unknown Encounters Encounter Type Encounter Reason Primary Diagnosis Location Date Ambulatory [facility]. ([facility]) 04/01/2024
--- OUTSIDE RECORDS SUMMARY | 2024-09-09 16:27 | XMS_ITS | Data Portability ---
Author Organization [place] - [facility] [address] Address [address] [place] [address] Assessment No assessment recorded. Plan of Treatment [...] Send Out Template NON DOT completed Kavita Otwell [place] [facility] 04/01/2024 13:06:42 5 OC-DOT PHYSICAL completed Kavita Otwell [place] - [facility] 04/01/2024 08:39:12 Imaging [...] Updated DateTime 5 154.94 cm 23.6 kg/m2 80919.0 5 g 98 [degF] 16 /min 78 /min 98 % 98 % 138 mm[Hg] 90 mm[Hg] Kavita Otwell [place] - [facility] 08:42:38 Social History None recorded. Functional Status None recorded. Mental Status None recorded. Family History Nothing Reported. Medical History No medical history recorded. Gynecological HistoryNo gynecological history recorded. 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
== END 2024-09-09 17:00 | disposition home or self-care (01) ==
LOC: HO.HGI 16:10
PROVIDERS: Visit Provider Nurse Practitioner Family
DX: D62 Acute posthemorrhagic anemia (principal); K64.4 Residual hemorrhoidal skin tags; Z98.890 Other specified postprocedural states; Z87.19 Personal history of other diseases of the digestive system; D50.0 Iron deficiency anemia secondary to blood loss (chronic); Z80.0 Family history of malignant neoplasm of digestive organs; A04.8 Other specified bacterial intestinal infections; K59.01 Slow transit constipation; K21.9 Gastro-esophageal reflux disease without esophagitis; R10.84 Generalized abdominal pain
CPT/HCPCS: 99214; G2211

== ENCOUNTER → 2024-09-09 16:09 | Outpatient (BNVA) | payer OTHER, SELFPAY | PROVIDERS: Visit Provider Nurse Practitioner Family | DX: D62 Acute posthemorrhagic anemia (principal); K64.4 Residual hemorrhoidal skin tags; Z98.890 Other specified postprocedural states; Z87.19 Personal history of other diseases of the digestive system; Z80.0 Family history of malignant neoplasm of digestive organs; A04.8 Other specified bacterial intestinal infections; K59.01 Slow transit constipation; K21.9 Gastro-esophageal reflux disease without esophagitis; R10.84 Generalized abdominal pain | CPT/HCPCS: 99212 ==